=== PATIENT | female | born 1955 | race Caucasian/White ===

== ENCOUNTER 2016-12-29 09:49 | Inpatient (IN) | payer BC ==
[~2016-12-29] VITALS: Ht 152.4 cm; Wt 97.0 kg
[~2016-12-29 09:49] MED LIST: ALBU1AER9 INH; CHOL100010 PO; COD1000C PO; FURO20TA PO; INTE0.3I2 INJ; MTR600X PO; OMEG12006 PO; POTA-74 PO; ROSU40TA PO
[2016-12-29] MEDS ORDERED: OPTIRAY 320 IV PRN (10:30)
[2016-12-29] MEDS ORDERED: OXYC-609 PO (10:43)
[2016-12-29] MEDS ORDERED: MTR500 PO (10:43)
[2016-12-29 11:01] LABS: BASO % 0.2 %; BASO ABS # 0.02 K/uL (0-0.2); COMPLETE YES; EOS % 0.3 %; HEMATOCRIT 36.6 % (37-47); IG% 0.2 %; LYMPH % 8.3 %; LYMPH ABS # 1.04 K/uL (1.2-3.4); MEAN CORPUSCULAR HEMOGLOBIN 25.2 pg (25-34); MEAN CORPUSCULAR HGB CONC 31.1 g/dl (32-36); MEAN PLATELET VOLUME 10.9 fL (7.4-10.4); PLATELET COUNT 357 K/uL (130-400); RED BLOOD COUNT 4.52 M/uL (4.2-5.4); WHITE BLOOD COUNT 12.57 K/uL (4.8-10.8)
[2016-12-29 11:12] LABS: PROTHROMBIN TIME (PATIENT) 10.6 SECONDS (9.0-12.0)
[2016-12-29 11:20] LABS: ALT/SGPT 27 U/L (12-78); BLOOD UREA NITROGEN 9 mg/dl (7-18); BUN/CREATININE RATIO 12.6 (10-20); CALCIUM 8.7 mg/dl (8.5-10.1); CARBON DIOXIDE 26 mmol/L (21-32); CHLORIDE 103 mmol/L (98-107); GLUCOSE 136 mg/dl (70-99); POTASSIUM 3.4 mmol/L (3.5-5.1); SODIUM 137 mmol/L (136-145)
--- NOTE | 2016-12-29 11:23 | DIAGNOSTIC IMAGING REPORT ---
ULTRASOUND RIGHT LOWER EXTREMITY VENOUS CLINICAL HISTORY: Right leg swelling. COMPARISON STUDY: No priors. TECHNIQUE: Real-time, grayscale, and color Doppler sonography of the deep veins of the right lower extremity was performed from the inguinal crease to the calf. Compression and augmentation were utilized. FINDINGS: There is nearly occlusive deep venous thrombosis identified in the right popliteal vein. This extends into the calf within the peroneal and posterior tibial veins. The common femoral and superficial femoral veins are patent and normally compressible. The greater saphenous vein and the profunda femoris vein at the junction with the common femoral vein are clear. IMPRESSION: There is nearly occlusive deep venous thrombosis identified in the right popliteal vein which extends into the calf. Electronically signed by: Sukh Bush M.D. 12/29/2016 11:21 AM Dictated Date/Time: 12/29/2016 11:20 AM
[2016-12-29 11:25] LABS: ALKALINE PHOSPHATASE 119 U/L (45-117); AST/SGOT 14 U/L (15-37); CKMB/CK RATIO 3.8 (0-3.0)
--- NOTE | 2016-12-29 11:49 | DIAGNOSTIC IMAGING REPORT ---
(CHEST FOR PE) ANGIO WITH CT DOSE: 483.59 mGy.cm HISTORY: Chest pain dyspnea TECHNIQUE: Multiaxial CT images of the chest were performed following the intravenous administration of contrast to evaluate the pulmonary arteries. Maximal intensity projection images were also obtained. A dose lowering technique was utilized adhering to the principles of ALARA. COMPARISON STUDY: None. FINDINGS: Findings of bilateral extensive pulmonary emboli. There is worse on the right hemithorax compared to the left. There is involvement of the distal right main pulmonary artery with involvement of the right upper as well as right lower lobe pulmonary arterial vasculature. Less prominent findings seen involving the second-order vessels of the left hemithorax. There is a small right effusion. There is a trace amount pleural fluid left base. Parenchymal infiltrative change both lung bases versus dependent atelectatic changes present. Thoracic aorta is negative for aneurysm or dissection. IMPRESSION: Bilateral pulmonary pulmonary emboli worse on the right compared to the left. Bibasilar atelectatic and/or infiltrative change. Small right and to a lesser extent left pleural effusion. This report was phoned to Dr. Kaela medeiros in the ER The above report was generated using voice recognition software. It may contain grammatical, syntax or spelling errors. Electronically signed by: Jerry Xiao M.D. 12/29/2016 11:48 AM Dictated Date/Time: 12/29/2016 11:44 AM
[2016-12-29] MEDS ORDERED: HEPARIN 25000 UNIT/500 ML D5W ONE (12:08)
[2016-12-29] MEDS ORDERED: HEPARIN SOD 5000 UNIT/0.5 ML CARP ONE (12:08)
[2016-12-29 12:10] VITALS: O2SAT 96; Ht 152.4 cm; Wt 97.0 kg
[2016-12-29] MEDS ORDERED: HEPARIN SOD (PORCINE) 1000 UNIT/ML 10 ML VIAL ONE (12:13)
[2016-12-29] MEDS ORDERED: ALBUTEROL HFA 8 GM INHALER INH PRN (12:15)
[2016-12-29] MEDS ORDERED: ONDANSETRON INJ 2 MG/ML 2 ML VIAL IV PRN (12:15)
[2016-12-29] MEDS ORDERED: POTASSIUM CHLORIDE 10 MEQ TABCR PO STA (12:16)
--- NOTE | 2016-12-29 12:25 | EMERGENCY ROOM VISIT NOTE ---
History Report prepared by William: Malu Kennedy Under the Supervision of: Dr. Gage Morales D.O. First contact with patient: 10:22 Chief Complaint: SHORTNESS OF BREATH Stated Complaint: SHOULDER BLADES, RT SIDE CHEST DISCOMFORT Nursing Triage Summary: triage note: pt reports she [place] [facility] [place] pt reports she was dx with c-diff last sunday. pt reports she started to have shortness of breath and right shoulder blade pain last night. History of Present Illness The patient is a 61 year old female who presents to the Emergency Room with complaints of persistent SOB starting last night. The patient reports a sharp pain around her right shoulder blade which started last night. She also became SOB with this pain. She went to bed, but the pain did not improve. At 0500 she took two furosemide because she noticed that her lower extremities were swollen and she thought that she might be filling up with fluid. The furosemide did not help her symptoms. She has pain in the back of her right leg between her calf and the back of her knee. Pt denies having any rashes. She had hernia surgery 2.5 weeks ago. Her abdomen is sore but not bothering her. She was diagnosed with C diff 1 week ago and started of metronidazole. She denies any history of kidney problems. She has a history of MS. She has not had shingles before. Source of History: patient Onset: last night Position: other (global) Quality: other (SOB) Timing: other (persistent) Associated Symptoms: + back pain, No rash Note: Pt reports right leg pain. Review of Systems See HPI for pertinent positives & negatives. A total of 10 systems reviewed and were otherwise negative. Past Medical & Surgical Medical Problems: (1) Asthma (2) DVT (deep venous thrombosis) (3) Pulmonary embolism Family History Heart disease Social History Smoking Status: Never Smoker Marital Status: Occupation Status: employed Current/Historical Medications Scheduled Cholecalciferol (Vitamin D), 1,000 INTER.UNIT PO QPM Furosemide (Lasix), 20 MG PO QAM Interferon Beta-1B (Betaseron), 1 DOSE INJ Q2D Metronidazole (Metronidazole), 500 MG PO TID [place]-3 Fatty Acids ([place] 3), 1 CAP PO QPM Potassium Chloride (Potassium Chloride Er), 2 TAB PO QAM Scheduled PRN Albuterol (Proair Hfa), 2 PUFFS INH Q4 PRN for SOB/Wheezing Ibuprofen (Ibuprofen), 600 MG PO Q6H PRN for Pain Oxycodone HCl (Oxycodone HCl), 5 MG PO Q6 PRN for Pain Allergies Coded Allergies: Adhesives (Verified Allergy, Unknown, BANDAIDES, RASH, EXCORIATION, 12/29/16 ) Penicillins (Unverified Allergy, Unknown, RASH, HIVES, 12/29/16) Rosuvastatin (Unverified Allergy, Unknown, LIVER FAILURE, 12/29/16) Physical Exam Vital Signs Date Time Temp Pulse Resp B/P (MAP) Pulse Ox O2 Delivery O2 Flow Rate FiO2 12/29/16 12:05 85 18 129/71 96 Room Air 12/29/16 11:03 82 18 137/70 94 Room Air 12/29/16 10:12 86 12/29/16 10:05 36.8 83 18 108/97 96 Room Air 12/29/16 10:05 96 Room Air 12/29/16 10:05 94 Room Air Physical Exam CONSTITUTIONAL/VITAL SIGNS: Reviewed / noted above. GENERAL: Non-toxic in appearance. INTEGUMENTARY: Warm, dry, and [place]. HEAD: Normocephalic. EYES: without scleral icterus or trauma. ENT/OROPHARYNX: clear and moist. LYMPHADENOPATHY/NECK: Is supple without lymphadenopathy or meningismus. RESPIRATORY: Lungs clear and equal. CARDIOVASCULAR: Regular rate and rhythm. GI/ABDOMEN: Soft and nontender. No organomegaly or pulsatile mass. No rebound or guarding. Normal bowel sounds. EXTREMITIES: Warm and well perfused. Mild tenderness to the right superior calf. BACK: No CVA tenderness. NEUROLOGICAL: Intact without focal deficits. PSYCHIATRIC: normal affect. MUSCULOSKELETAL: Normally developed with good muscle tone. Medical Decision & Procedures ER Provider Diagnostic Interpretation: Radiology results as stated below per my review and radiologist interpretation: (CHEST FOR PE) ANGIO WITH CT DOSE: 483.59 mGy.cm HISTORY: Chest pain dyspnea TECHNIQUE: Multiaxial CT images of the chest were performed following the intravenous administration of contrast to evaluate the pulmonary arteries. Maximal intensity projection images were also obtained. A dose lowering technique was utilized adhering to the principles of ALARA. COMPARISON STUDY: None. FINDINGS: Findings of bilateral extensive pulmonary emboli. There is worse on the right hemithorax compared to the left. There is involvement of the distal right main pulmonary artery with involvement of the right upper as well as right lower lobe pulmonary arterial vasculature. Less prominent findings seen involving the second-order vessels of the left hemithorax. There is a small right effusion. There is a trace amount pleural fluid left base. Parenchymal infiltrative change both lung bases versus dependent atelectatic changes present. Thoracic aorta is negative for aneurysm or dissection. IMPRESSION: Bilateral pulmonary pulmonary emboli worse on the right compared to the left. Bibasilar atelectatic and/or infiltrative change. Small right and to a lesser extent left pleural effusion. This report was phoned to Dr. Morales in the ER The above report was generated using voice recognition software. It may contain grammatical, syntax or spelling errors. Electronically signed by: Jerry Xiao M.D. 12/29/2016 11:48 AM Dictated Date/Time: 12/29/2016 11:44 AM ULTRASOUND RIGHT LOWER EXTREMITY VENOUS CLINICAL HISTORY: Right leg swelling. COMPARISON STUDY: No priors. TECHNIQUE: Real-time, grayscale, and color Doppler sonography of the deep veins of the right lower extremity was performed from the inguinal crease to the calf. Compression and augmentation were utilized. FINDINGS: There is nearly occlusive deep venous thrombosis identified in the right popliteal vein. This extends into the calf within the peroneal and posterior tibial veins. The common femoral and superficial femoral veins are patent and normally compressible. The greater saphenous vein and the profunda femoris vein at the junction with the common femoral vein are clear. IMPRESSION: There is nearly occlusive deep venous thrombosis identified in the right popliteal vein which extends into the calf. Electronically signed by: Sukh Bush M.D. 12/29/2016 11:21 AM Dictated Date/Time: 12/29/2016 11:20 AM Laboratory Results 12/29/16 10:48 Red Blood Count 4.52, Mean Corpuscular Volume 81.0, Mean Corpuscular Hemoglobin 25.2, Mean Corpuscular Hemoglobin Concent 31.1, Mean Platelet Volume 10.9, Neutrophils (%) (Auto) 83.0, Lymphocytes (%) (Auto) 8.3, Monocytes (%) (Auto) 8.0, Eosinophils (%) (Auto) 0.3, Basophils (%) (Auto) 0.2, Neutrophils # (Auto) 10.43, Lymphocytes # (Auto) 1.04, Monocytes # (Auto) 1.01, Eosinophils # (Auto) 0.04, Basophils # (Auto) 0.02 12/29/16 10:48 Test 12/29/16 10:48 12/29/16 12:18 White Blood Count 12.57 K/uL (4.8-10.8) Red Blood Count 4.52 M/uL (4.2-5.4) Hemoglobin 11.4 g/dL (12.0-16.0) Hematocrit 36.6 % (37-47) Mean Corpuscular Volume 81.0 fL (80-100) Mean Corpuscular Hemoglobin 25.2 pg (25-34) Mean Corpuscular Hemoglobin Concent 31.1 g/dl (32-36) Platelet Count 357 K/uL (130-400) Mean Platelet Volume 10.9 fL (7.4-10.4) Neutrophils (%) (Auto) 83.0 % Lymphocytes (%) (Auto) 8.3 % Monocytes (%) (Auto) 8.0 % Eosinophils (%) (Auto) 0.3 % Basophils (%) (Auto) 0.2 % Neutrophils # (Auto) 10.43 K/uL (1.4-6.5) Lymphocytes # (Auto) 1.04 K/uL (1.2-3.4) Monocytes # (Auto) 1.01 K/uL (0.11-0.59) Eosinophils # (Auto) 0.04 K/uL (0-0.5) Basophils # (Auto) 0.02 K/uL (0-0.2) RDW Standard Deviation 47.6 fL (36.4-46.3) RDW Coefficient of Variation 16.0 % (11.5-14.5) Immature Granulocyte % (Auto) 0.2 % Immature Granulocyte # (Auto) 0.03 K/uL (0.00-0.02) Prothrombin Time 10.6 SECONDS (9.0-12.0) Prothromb Time International Ratio 1.0 (0.9-1.1) Activated Partial Thromboplast Time 26.6 SECONDS (21.0-31.0) Partial Thromboplastin Ratio 1.0 Anion Gap 8.0 mmol/L (3-11) Est Creatinine Clear Calc Drug Dose 89.9 ml/min Estimated GFR () 108.4 Estimated GFR (Non- 93.5 BUN/Creatinine Ratio 12.6 (10-20) Calcium Level 8.7 mg/dl (8.5-10.1) Total Bilirubin 0.4 mg/dl (0.2-1) Direct Bilirubin < 0.1 mg/dl (0-0.2) Aspartate Amino Transf (AST/SGOT) 14 U/L (15-37) Alanine Aminotransferase (ALT/SGPT) 27 U/L (12-78) Alkaline Phosphatase 119 U/L (45-117) Total Creatine Kinase 34 U/L (26-192) Creatine Kinase MB 1.3 ng/ml (0.5-3.6) Creatine Kinase MB Ratio 3.8 (0-3.0) Troponin I < 0.015 ng/ml (0-0.045) Total Protein 7.2 gm/dl (6.4-8.2) Albumin 2.7 gm/dl (3.4-5.0) Lipase 406 U/L (73-393) Laboratory results as stated above per my review. Medications Administered Medications (Trade) Dose Ordered Sig/Chelle Route Start Time Stop Time Status Last Admin Dose Admin Heparin Sodium/ Dextrose 1 ea NOW STAT N/A 12/29/16 12:00 12/29/16 12:01 DC 12/29/16 12:00 1 EA Heparin Sodium/ Dextrose (Heparin 25,000 Unit/500ml D5W) 25,000 unit STK-MED ONCE .ROUTE 12/29/16 12:08 12/29/16 12:09 DC 12/29/16 12:12 25,000 UNIT Heparin Sodium (Porcine) (Heparin Iv Bolus) 10,000 unit STK-MED ONCE .ROUTE 12/29/16 12:13 12/29/16 12:14 DC 12/29/16 12:16 5,000 UNIT ECG Indication: back/shoulder pain Rate (beats per minute): 89 Rhythm: normal sinus Findings: no ectopy, other (no acute injury) ED Course 1023: Previous medical records were reviewed. The patient was evaluated in room B4B. A complete history and physical examination was performed. 1200: Heparin Sodium/Dextrose 1 ea IV. 1201: I reevaluated the patient. She is stable. I discussed the results and findings with her. She verbalized agreement of the treatment plan. The patient will be evaluated for further management and care. 1203: I discussed the patient's case [facility] The patient will be evaluated for further management. Medical Decision the differential was considered includes acute myocardial infarction, acute coronary syndrome, myocarditis, pericarditis, pericardial effusions /tamponade, esophageal perforation, thoracic aortic dissection, pulmonary embolism, pneumonia, pneumothorax, pancreatitis, shingles, acute cholecystitis, perforated abdominal viscus. This is a 61-year-old female who presents to the ED with a chief complaint of having an abdominal ventral wall hernia repair on December 12 at [facility]. The patient also developed C. difficile last Sunday. The patient states that she felt a little short of breath this morning and developed a right shoulder blade pain last night. She describes it as a sharp pain. Her vital signs are normal. Her physical exam revealed some tenderness to the superior right calf region. The patient's EKG shows a normal sinus rhythm. CBC was unremarkable. Complete metabolic panel was unremarkable. Troponin was negative. Chest x-ray reveals bilateral PEs in the right lower extremity ultrasound reveals a right popliteal vein DVT. The patient was started on IV heparin. She will be admitted by the hospitalist. She is hemodynamically stable, in no distress and short of breath. Medication Reconcilliation Current Medication List: was personally reviewed by me Blood Pressure Screening Patient's blood pressure: Normal blood pressure Blood pressure disposition: Did not require urgent referral Consults Time Called: 1159 Consulting Physician: [facility] Returned Call: [phone] Discussed the patient's case. The patient will be evaluated for further treatment and disposition. Impression Primary Impression: Bilateral pulmonary embolism Additional Impression: Deep vein thrombosis (DVT) of right lower extremity Scribe Attestation The scribe's documentation has been prepared under my direction and personally reviewed by me in its entirety. I confirm that the note above accurately reflects all work, treatment, procedures, and medical decision making performed by me. Departure Information Dispostion Being Evaluated By Hospitalist Referrals Zeferino Wheeler M.D. ([facility]) (PCP) Patient Instructions My [facility] Problem Qualifiers
[2016-12-29] MEDS ORDERED: ENOXAPARIN 1 MG/KG SQ SCH (12:30)
[2016-12-29] MEDS ORDERED: LOVENOX TEACHING KIT SCH (12:30)
[2016-12-29] MEDS ORDERED: POTASSIUM CHLORIDE 10 MEQ TABCR ONE ×2 (12:30→12:31)
--- NOTE | 2016-12-29 13:04 | History and Physical ---
History & Physical Date & Time of Service: Dec 29, 2016 at 12:59 Chief Complaint: Shoulder Blades, Rt Side Chest Discomfort Primary Care Physician: Zeferino Wheeler M.D.(MARTIN) History of Present Illness Source: patient This is a 61yo F with a PMH of Multiple Sclerosis and ventral hernia s/p repair with mesh (12/12/16) who presents with SOB that started last night. Patient was getting ready for bed when she experienced sudden onset SOB with associated posterior R shoulder pain. As the night progressed, she noticed that pain was worse with inspiration. In the vending technician, patient noticed that both legs were swollen, so she took two furosemide tabs (40mg total) to decrease fluid, but noted no change. Upon ambulation to the restroom, patient noticed a sharp pain on the back of her R leg from her knee to her calf. Pain resolved once she was back in bed lying down. Denies any personal or family history of DVT/PE or clotting disorders Denies any lightheadedness, headache, palpitations, chest pain, wheezing, nausea, vomiting or skin changes. Patient had a retro-rectus incisional hernia repair with mesh performed at [facility] on 12/12/26. Was on Lovenox prophylaxis during admission. States that post-op hospital course was complicated by nausea, vomiting and diarrhea that contributed to an extended hospital stay (11 days). Was sedentary during that time as well as during the past week when recovering at home. Was diagnosed with C diff 1 day prior to discharge on 12/23/16 and was started on a course of metronidazole. Has had periods of constipation over the past few days until taking a stool softener and laxative last evening. Since then, patient endorses 4 episodes of loose stool. Past Medical/Surgical History Medical Problems: (1) Asthma Status: Chronic Family History Heart disease Social History Smoking Status: Never Smoker Marital Status: Occupational Status: employed Multi-Drug Resistant Organisms History of MDRO: No Allergies Coded Allergies: Adhesives (Verified Allergy, Unknown, BANDAIDES, RASH, EXCORIATION, 12/29/16 ) Penicillins (Unverified Allergy, Unknown, RASH, HIVES, 12/29/16) Rosuvastatin (Unverified Allergy, Unknown, LIVER FAILURE, 12/29/16) Home Medications Scheduled Cholecalciferol (Vitamin D), 1,000 INTER.UNIT PO QPM Enoxaparin (Enoxaparin Sodium), 100 MG SQ Q12 Furosemide (Lasix), 20 MG PO QAM Interferon Beta-1B (Betaseron), 1 DOSE INJ Q2D Metronidazole (Metronidazole), 500 MG PO TID Bluford-3 Fatty Acids (Bluford 3), 1 CAP PO QPM Potassium Chloride (Potassium Chloride Er), 2 TAB PO QAM Warfarin Sod (Coumadin), 7.5 MG PO DAILY Scheduled PRN Albuterol (Proair Hfa), 2 PUFFS INH Q4 PRN for SOB/Wheezing Ibuprofen (Ibuprofen), 600 MG PO Q6H PRN for Pain Oxycodone HCl (Oxycodone HCl), 5 MG PO Q6 PRN for Pain Review of Systems Ten systems reviewed and negative except as noted in the HPI. Physical Exam Vital Signs Date Time Temp Pulse Resp B/P (MAP) Pulse Ox O2 Delivery O2 Flow Rate FiO2 12/29/16 12:10 96 Room Air 12/29/16 12:05 85 18 129/71 96 Room Air 12/29/16 11:03 82 18 137/70 94 Room Air 12/29/16 10:12 86 12/29/16 10:05 36.8 83 18 108/97 96 Room Air 12/29/16 10:05 96 Room Air 12/29/16 10:05 94 Room Air General Appearance: WD/WN, no apparent distress Head: normocephalic, atraumatic Eyes: normal inspection, PERRL, sclerae normal ENT: normal ENT inspection, hearing grossly normal Neck: supple, no adenopathy, thyroid normal, trachea midline Respiratory/Chest: chest non-tender, no respiratory distress, no accessory muscle use, + decreased breath sounds (Inspiration limited 2/2 pleuritic pain. ) Cardiovascular: regular rate, rhythm, no gallop, no murmur, normal peripheral pulses Abdomen/GI: normal bowel sounds (Presence of well-healing vertical midline incision with cheli. 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, no motor/sensory deficits, alert, normal mood/affect, oriented x 3, + abnormal gait (Chronic; ambulates with cane ) Skin: normal color, warm/dry, no rash Diagnostics Laboratory Results Results Past 24 Hours Test 12/29/16 10:40 12/29/16 10:48 12/29/16 12:18 Range/Units White Blood Count 12.57 4.8-10.8 K/uL Red Blood Count 4.52 4.2-5.4 M/uL Hemoglobin 11.4 12.0-16.0 g/dL Hematocrit 36.6 37-47 % Mean Corpuscular Volume 81.0 80-100 fL Mean Corpuscular Hemoglobin 25.2 25-34 pg Mean Corpuscular Hemoglobin Concent 31.1 32-36 g/dl Platelet Count 357 130-400 K/uL Mean Platelet Volume 10.9 7.4-10.4 fL Neutrophils (%) (Auto) 83.0 % Lymphocytes (%) (Auto) 8.3 % Monocytes (%) (Auto) 8.0 % Eosinophils (%) (Auto) 0.3 % Basophils (%) (Auto) 0.2 % Neutrophils # (Auto) 10.43 1.4-6.5 K/uL Lymphocytes # (Auto) 1.04 1.2-3.4 K/uL Monocytes # (Auto) 1.01 0.11-0.59 K/uL Eosinophils # (Auto) 0.04 0-0.5 K/uL Basophils # (Auto) 0.02 0-0.2 K/uL RDW Standard Deviation 47.6 36.4-46.3 fL RDW Coefficient of Variation 16.0 11.5-14.5 % Immature Granulocyte % (Auto) 0.2 % Immature Granulocyte # (Auto) 0.03 0.00-0.02 K/uL Prothrombin Time 10.6 9.0-12.0 SECONDS Prothromb Time International Ratio 1.0 0.9-1.1 Activated Partial Thromboplast Time 26.6 21.0-31.0 SECONDS Partial Thromboplastin Ratio 1.0 Sodium Level 137 136-145 mmol/L Potassium Level 3.4 3.5-5.1 mmol/L Chloride Level 103 98-107 mmol/L Carbon Dioxide Level 26 21-32 mmol/L Anion Gap 8.0 3-11 mmol/L Blood Urea Nitrogen 9 7-18 mg/dl Creatinine 0.70 0.60-1.20 mg/dl Est Creatinine Clear Calc Drug Dose 89.9 ml/min Estimated GFR () 108.4 Estimated GFR (Non- 93.5 BUN/Creatinine Ratio 12.6 10-20 Random Glucose 136 70-99 mg/dl Calcium Level 8.7 8.5-10.1 mg/dl Total Bilirubin 0.4 0.2-1 mg/dl Direct Bilirubin < 0.1 0-0.2 mg/dl Aspartate Amino Transf (AST/SGOT) 14 15-37 U/L Alanine Aminotransferase (ALT/SGPT) 27 12-78 U/L Alkaline Phosphatase 119 45-117 U/L Total Creatine Kinase 34 26-192 U/L Creatine Kinase MB 1.3 0.5-3.6 ng/ml Creatine Kinase MB Ratio 3.8 0-3.0 Troponin I < 0.015 0-0.045 ng/ml Total Protein 7.2 6.4-8.2 gm/dl Albumin 2.7 3.4-5.0 gm/dl Lipase 406 73-393 U/L Diagnostic Radiology Chest/Thorax CTA: IMPRESSION: Bilateral pulmonary pulmonary emboli worse on the right compared to the left. Bibasilar atelectatic and/or infiltrative change. Small right and to a lesser extent left pleural effusion. R Extremity U/S: IMPRESSION: There is nearly occlusive deep venous thrombosis identified in the right popliteal vein which extends into the calf. EKG ECG: NSR; non-specific ST abnormalities Impression Assessment and Plan This is a 61yo F with a PMH of Multiple Sclerosis and ventral hernia s/p repair with mesh (12/12/16) who presents with SOB that started last night and was found to have bilateral PEs, R LE DVT and a UTI. Bilateral PEs: -Sudden onset SOB and pleuritic pain x 1 day -VS stable; no tachycardia or tachypnea -CTA showing bilateral pulmonary emboli R>L -Hypercoagulability panel ordered -Echo to assess R heart strain -Most likely caused by immobility 2/2 hernia repair and extended hospital stay ( 11 days) -Therapeutic heparin initiated in ED -Will bridge with Lovenox and initiate Coumadin tomorrow R LE DVT: -R posterior knee and calf pain x 1 day -R Extremity U/S showing a nearly occlusive DVT in R popliteal vein, extended to calf -Therapeutic heparin initiated in ED -Will bridge with Lovenox and initiate Coumadin tomorrow Uncomplicated UTI: -UA found to have moderate amt of leuk esterase, >30 wbcs and 2+ occult blood -Leukocytosis of 12.57 -Started on course of Cipro C. diff infection: -Diagnosed during [facility] admission on 12/22/16 -States that symptoms are improving -Had 4 loose stools today after taking bowel regimen last evening 2/2 constipation -Continue metronidazole course -Repeat c diff toxin pending S/p Ventral Hernia repair: -Well-healing midline incision with cheli in place. Has appt for staple removal later this month. -Deconditioned after extended hospital course and c diff infection. Ordered PT/ OT eval Multiple Sclerosis: stable -Continue Interferon B injection every other day Elevated Lipase: -Slightly elevated to 406 -No n/v currently. Some diarrhea with c. diff infection -No epigastric or RUQ TTP on exam -Will repeat lab in AM HTN: -Normotensive -Continue Lasix 20mg Steatohepatitis: stable DVT Ppx: Lovenox Code status: FULL PCP: Summer Dispo: Plan to return home once medically stable. PT/OT evals ordered while in- patient. ATTENDING NOTE : pt seen and examined , images and date reviewed , care co ordinated with Nikki Chandler PA-C in agreement with above H&P please see her document for detail briefly 61 yo F with recently discharged form [facility] after prolong hospital stay for ventral abdominal hernia repair presented with rt leg pain , swelling /SOB with pain radiating to back between her shoulders images shows acute occlusive DVT of rt popliteal vein and bilateral PE in CTA of chest P/E: gen ; no sign of distress HEENT : sclera non icteric , PERRLA/EOMI no JVD HT : regular s1/S2 lungs; diminished , no rales or wheeze noted Abdomen ; mid abdomen surgical incision intact , cheli present , no drainage noted , abdomen is soft, bowel sound active EXT : 2 + bilateral lower ext edema, + calf tenderness on rt side Neuro: no focal neurological deficit , AAO x3 IMAGES: CTA OF CHEST ; Bilateral pulmonary emboli R> L DOPPLER OF LOWER EXT: nearly occlusive DVT of rt popliteal vein extending to calf A/p : BILATERAL PE/DVT : ' no prior hx possible provoking event : recent prolonged /complicated hospital stay post abdominal surgery ECHO ordered to assess Rt heart strain pt will be started on Lovenox Bridge therapy hypercoagulable work up sent d/w with Pt regarding NOAC vs Coumadin prefers to be on Coumadin , ok with periodic lab monitoring POSSIBLE UTI : UA grossly positive pt denies of any urinary symptom urine culture ordered started on PO Ciprofloxacin mild leukocytosis possible due to UTI RECENT C DIFF INFECTION ; Cont Metronidazole PO no report of diarrhea stool for c diff ordered FULL CODE DVT PROPHYLAXIS : Lovenox bridge /Coumadin DISPOSITION : expected to be return home when medically stable Medicine follow up with Dr Wheeler please refer to Nikki Chandler PA-C documentation for detail discussion of other issues Level of Care Telemetry Advanced Directives Existing Living Will: No Existing Power of Log Washer: No Resuscitation Status FULL RESUSCITATION VTE Prophylaxis VTE Risk Assessment Done? Y/N: Yes Risk Level: High Given or contraindicated: Enoxaparin (Lovenox)SQ, Warfarin (Coumadin) Additional Copies To Zeferino Wheeler M.D.(MARTIN)
[2016-12-29] MEDS ORDERED: OXYCODONE HCL IR 5 MG TAB (IMMEDIATE RELEASE) PO PRN (13:45)
[2016-12-29 14:32] VITALS: BP 134/78; PULSE 86; TEMP 36.8; O2SAT 99
--- NOTE | 2016-12-29 15:16 | ECHOCARDIOGRAM REPORT ---
*NOTICE TO RECEIVING CONSTITUTION PARTY AGENCY This information is strictly Confidential and protected under [place] law. [place] law prohibits you from making any further disclosure of this information unless further disclosure is expressly permitted by the written consent of the person to whom it pertains or is authorized by law. A general authorization for the release of medical or other information is not sufficient for this purpose. Hospital accepts no responsibility if the information is made available to any other person, INCLUDING THE PATIENT. Interpretation Summary * Name: PANKAJ RODRIGUEZ Study Date: 12/29/2016 01:37 PM BP: 134/78 mmHg * Patient Location: C.2T\S\E215\S\1 HR: 83 * : 1955 (M/d/yyyy) Gender: Female Height: 60 in * Age: 61 yrs Ethnicity: [place] Weight: 221 lb * Ordering Physician: Donya Calvert * Referring Physician: Self, Referred * Performed By: Nadeen Menjivar RCS * * Reason For Study: R/O EVAL FOR RT HEART STRAIN * BSA: 1.9 m2 * -- Conclusions -- * Normal LV chamber size and wall thickness. * Normal LV systolic function, EF 60-65%. * No segmental left ventricular wall motion abnormalities are noted. * Grade II diastolic dysfunction. * Aortic valve sclerosis mild, without significant aortic valvular stenosis. Procedure Details * A complete two-dimensional transthoracic echocardiogram was performed (2D, M-mode, Doppler and color flow Doppler). Left Ventricle * The left ventricle is normal in size. * There is normal left ventricular wall thickness. * Left ventricular systolic function is normal. * No segmental left ventricular wall motion abnormalities are noted. * Ejection Fraction = 60-65%. * The left ventricular wall motion is normal. Right Ventricle * The right ventricular cavity size is normal (basal dimension <4.2 cm in right ventricular apical 4-chamber view). * The right ventricular systolic function is normal as assessed by tricuspid annular plane systolic excursion (TAPSE) (normal >1.5 cm). Atria * The left atrial size is normal. * Right atrial size is normal. * No ASD detected; PFO is not assessed. Mitral Valve * The mitral valve is normal in structure and function. Tricuspid Valve * The tricuspid valve is normal in structure and function. Aortic Valve * The aortic valve is trileaflet. * Aortic valve sclerosis mild, without significant aortic valvular stenosis. * There is no significant aortic regurgitation. Pulmonic Valve * The pulmonary valve is not well seen, but the Doppler examination is normal without significant regurgitation or stenosis. Great Vessels * The aortic root and proximal ascending aorta are normal sized. Pericardium/Pleural * There is no pericardial effusion. Left Ventricular Diastolic Function * Grade I diastolic dysfunction, (abnormal relaxation pattern). MMode 2D Measurements and Calculations IVSd 1.0 cm IVSs 1.4 cm LVIDd 5.0 cm LVIDs 3.4 cm LVPWd 1.1 cm LVPWs 1.8 cm IVS/LVPW 0.91 FS 32.6 % EDV(Teich) 118.9 ml ESV(Teich) 46.6 ml EF(Teich) 60.8 % EDV(cubed) 125.9 ml ESV(cubed) 38.5 ml EF(cubed) 69.4 % % IVS thick 37.0 % % LVPW thick 61.7 % LV mass(C)d 205.5 grams LV mass(C)dI 105.5 grams/m\S\2 LV mass(C)s 212.9 grams LV mass(C)sI 109.3 grams/m\S\2 SV(Teich) 72.3 ml SI(Teich) 37.1 ml/m\S\2 SV(cubed) 87.4 ml SI(cubed) 44.9 ml/m\S\2 Ao root diam 3.3 cm Ao root area 8.3 cm\S\2 LA dimension 3.5 cm LA/Ao 1.1 LVOT diam 1.9 cm LVOT area 3.0 cm\S\2 Doppler Measurements and Calculations MV E max christiano 84.1 cm/sec MV A max christiano 72.3 cm/sec MV E/A 1.2 MV P1/2t max christiano 93.0 cm/sec MV P1/2t 72.3 msec MVA(P1/2t) 3.0 cm\S\2 MV dec slope 376.5 cm/sec\S\2 MV dec time 0.18 sec Ao V2 max 162.4 cm/sec Ao max PG 10.6 mmHg Ao max PG (full) 6.3 mmHg BULMARO(V,A) 1.9 cm\S\2 BULMARO(V,D) 1.9 cm\S\2 LV V1 max PG 4.3 mmHg LV V1 max 103.5 cm/sec PA V2 max 98.9 cm/sec PA max PG 3.9 mmHg TR max christiano 377.5 cm/sec
[2016-12-29] MEDS: METRONIDAZOLE 500 MG TAB PO SCH ×2 (15:28→22:35)
[2016-12-29] MEDS: ENOXAPARIN 100 MG/1ML SYR SQ SCH ×2 (15:29→22:35)
[2016-12-29 15:57] LABS: URINE APPEARANCE CLOUDY (CLEAR); URINE BILIRUBIN NEG (NEG); URINE COLOR YELLOW; URINE EPITHELIAL CELL AUTO >30 /lpf (0-5); URINE NITRITE NEG (NEG); URINE SPECIFIC GRAVITY > 1.045 (1.000-1.030); UROBILINOGEN NEG (NEG); ZZUR CULT IF INDIC CLEAN CATCH YES
[2016-12-29 16:01] LABS: MANUAL MICROSCOPIC REQUIRED? NO; REVIEW REQ? YES
[2016-12-29] MEDS: LACTOBACILLUS ACIDOPHILUS (FLORANEX) TAB PO SCH (17:35)
[2016-12-29 19:44] VITALS: BP 122/81; PULSE 84; TEMP 36.7; O2SAT 91
[2016-12-29] MEDS: CIPROFLOXACIN 500 MG TAB PO SCH (19:56)
[2016-12-29] MEDS: OMEGA-3 (PURIFIED FISH OIL) 1 GM CAP PO SCH (19:59)
[2016-12-29] MEDS: CHOLECALCIFEROL 1000 INTER.UNIT TAB PO SCH (19:59)
[2016-12-29] MEDS ORDERED: KETOROLAC TROMETHAMINE 30 MG/ML VIAL IV STA (20:07)
[2016-12-29] MEDS ORDERED: INTERFERON BETA 0.3 MG SC SCH (21:00)
--- NOTE | 2016-12-29 22:30 | DIAGNOSTIC IMAGING REPORT ---
ABDOMEN AND PELVIS CT WITHOUT CONTRAST CT DOSE: 1056.09 mGy.cm HISTORY: back pain on blood thinners, ro bleed TECHNIQUE: Multiaxial CT images of the abdomen and pelvis were performed without contrast. A dose lowering technique was utilized adhering to the principles of ALARA. COMPARISON STUDY: Chest CTA 12/29/2016. FINDINGS: Small right pleural effusion, unchanged. Patchy bilateral lower lobe densities. This may represent atelectasis and/or pulmonary infarct given the pulmonary emboli. No pneumoperitoneum. No pneumatosis. No suspicious lytic or blastic osseous lesions. Recent midline incision with multiple skin cheli. A 6.7 cm subcutaneous gas and fluid collection deep to the skin cheli/incision site. No evidence for a retroperitoneal hematoma. Mild hepatic steatosis. The unenhanced spleen, adrenal glands, and pancreas are unremarkable. The gallbladder remains mildly distended. No gallbladder wall thickening. No retroperitoneal lymphadenopathy. Contrast within the renal collecting systems from the prior CT examination. There is also contrast within the bladder. No hydronephrosis. There are 2 hypodense lesions within the right kidney with the largest in the lower pole measuring 5 cm. These are incompletely characterized on this noncontrast study. There are multiple left peripelvic renal cysts. Prior appendectomy. No bowel wall thickening or obstruction. IMPRESSION: 1. No evidence for a retroperitoneal hematoma. 2. No change in the small right pleural effusion and bibasilar densities. This may represent atelectasis persists or pulmonary infarcts given the patient's history of pulmonary emboli. 3. Recent midline abdominal incision. There is a 6.7 cm subcutaneous gas and fluid collection deep to the incision site which favors a seroma at this time. Clinical follow-up recommended to ensure resolution and to exclude the possibility of a developing abscess. 4. The gallbladder remains mildly distended. No gallbladder wall thickening. Electronically signed by: Kin Coffman M.D. 12/29/2016 10:28 PM Dictated Date/Time: 12/29/2016 10:16 PM
[2016-12-30] VITALS (7 sets, daily range): BP systolic 122–145; BP diastolic 72–83; PULSE 81–93; TEMP 36.7–37.3; O2SAT 90–96
[2016-12-30 05:58] LABS: HEMATOCRIT 33.8 % (37-47); MEAN CELL VOLUME 81.6 fL (80-100); MEAN CORPUSCULAR HEMOGLOBIN 25.4 pg (25-34); MEAN CORPUSCULAR HGB CONC 31.1 g/dl (32-36); MEAN PLATELET VOLUME 11.2 fL (7.4-10.4); PLATELET COUNT 333 K/uL (130-400); RED BLOOD COUNT 4.14 M/uL (4.2-5.4); WHITE BLOOD COUNT 11.05 K/uL (4.8-10.8)
[2016-12-30] MEDS: METRONIDAZOLE 500 MG TAB PO SCH ×3 (06:00→20:26)
[2016-12-30 06:06] LABS: INR 1.1 (0.9-1.1); PROTHROMBIN TIME (PATIENT) 11.3 SECONDS (9.0-12.0)
[2016-12-30 06:22] LABS: BUN/CREATININE RATIO 12.7 (10-20); CALCIUM 8.7 mg/dl (8.5-10.1); CREATININE 0.78 mg/dl (0.60-1.20); POTASSIUM 3.5 mmol/L (3.5-5.1)
[2016-12-30] MEDS ORDERED: NSS + 20MEQ KCL 1000ML 1,000 ML IV ONE (07:00)
[2016-12-30] MEDS: LACTOBACILLUS ACIDOPHILUS (FLORANEX) TAB PO SCH ×3 (08:09→17:18)
[2016-12-30] MEDS ORDERED: POTASSIUM CHLORIDE PO SCH (09:00)
[2016-12-30] MEDS ORDERED: FUROSEMIDE 20 MG TAB PO SCH (09:00)
[2016-12-30] MEDS: CIPROFLOXACIN 500 MG TAB PO SCH ×2 (09:33→20:27)
[2016-12-30] MEDS: ENOXAPARIN 100 MG/1ML SYR SQ SCH ×2 (09:33→20:28)
[2016-12-30] MEDS ORDERED: LVNIS100 SQ (10:33)
[2016-12-30] MEDS ORDERED: CMD75 PO (10:33)
--- NOTE | 2016-12-30 10:53 | Discharge Instructions ---
Discharge Instructions Date of Service Admission Reason for Admission: Dvt, Pulmonary Embolism Discharge Discharge Diagnosis / Problem: (1) Deep vein thrombosis (DVT) of right lower extremity (2) Bilateral pulmonary embolism VTE Date & Time Date of VTE Diagnosis: Dec 29, 2016 Time of VTE Diagnosis: 10:27 Discharge Goals Goal(s): Decrease discomfort, Diagnostic testing, Therapeutic intervention Activity Recommendations Activity Limitations: resume your previous activity Shower/Bathe: no limitations . Instructions / Follow-Up Instructions / Follow-Up HOSPITAL FOLLOW UP : 01/03/2017 10:00 AM Zeferino Wheeler MD Family Practice [facility] SURGERY FOLLOW UP : 01/17/2017 9:30 AM Kaycee Burroughs PA-C [facility] WITH ANTICO[facility]ULATION /COAGULATION CLINIC FOR MONITORING OF PT/INR AND ADJUSTMENT OF COUMADIN DOSE YOU ARE SENT HOME WITH LOVENOX BRIDGE THERAPY -WHICH WILL BE DISCONTINUED AFTER BLOOD WORK CHECK ( PT/INR ) AT COAGULATION CLINIC DO NOT TAKE ASPIRIN , MOTRIN , ADVIL , IBUPROFEN-INCREASED RISK OF BLEEDING WHILE TAKING COUMADIN PLEASE NOTIFY YOUR FAMILY PHYSICIAN WITH ANY EVIDENCE OF DARK STOOL , BLOOD IN URINE , NOSE BLEED Medication Instructions: * Warfarin is a medicine prescribed to prevent blood clots * Warfarin will thin your blood and help prevent new clots * Take your medications exactly as directed * Never skip a dose. Never take a double dose. If you miss a dose, take it as soon as you remember * It is important for your doctor to monitor your prothrombin time (PT). This is a lab test * Keep your appointment for lab tests Risk of Adverse Drug Reactions and Interactions: * Warfarin increases your risk of bleeding * The food you eat and other medications you take can affect how Warfarin works in your body * Ask your doctor about daily aspirin therapy * It is very important to talk with your doctor about all of the other medicines , antibiotics, vitamins or herbal products that you are taking * All of your medication must be approved by your doctor, including new medicines, as well as medicines you have taken before you started taking Warfarin Diet: * In order for Warfarin to work properly, it is important to keep your intake of Vitamin K as consistent as possible * You should avoid any sudden change in Vitamin K intake * Report any significant changes in your diet or weight to your doctor Call your Primary Care doctor if you experience any of the following: * Swelling or Pain in your leg * Sudden, continuous pain deep in a muscle * Pain that worsens when you are active or when you stand still for a long time * Chest Pain * Sudden Shortness of Breath * Rapid or pounding heart beat * Fainting * Dizziness * Cough with blood or bloody sputum * Sweating more than normal * Bruises * Heavy or uncontrolled bleeding * Blood in your urine, stool or vomit * Black or tarry stools Caring for Your Self at Home: * Avoid sitting, standing or lying down for long periods without moving your legs and feet * When traveling by car, stop to get out and move around at least once every 3 hours * On long airplane, train or bus rides, get up and move around when possible * If you can't get up, wiggle your toes and tighten your calves to keep your blood moving Follow Up: It is important for you to keep your follow up appointments with your medical provider. Current Hospital Diet Patient's current hospital diet: Low Fat Diet Discharge Diet Recommended Diet: Low Sodium Diet (2gm Na) Pending Studies Studies pending at discharge: yes List of pending studies: RESULT FOR HYPERCOAGULABLE WORK UP ORDERED AT [facility] Medical Emergencies . Who to Call and When: Medical Emergencies: If at any time you feel your situation is an emergency, please call 911 immediately. . Non-Emergent Contact Non-Emergency issues call your: Primary Care Provider . . "Provider Documentation" section prepared by Donya Calvert. . VTE Core Measure Inpt VTE Proph given/why not?: Enoxaparin (Lovenox)SQ, Warfarin (Coumadin) Reason no anticoag overlap I/P: Treatment provided - N/A Reason no anticoag overlap @DC: Treatment provided - N/A
--- NOTE | 2016-12-30 11:40 | Progress Note ---
Internal Med Progress Note Date of Service: Dec 30, 2016. Provider Documentation: SUBJECTIVE: still having SOB , hurts when taking deep breath requiring supplemental 02 -not on home 02 mentions having pain on left side of chest wall while taking deep breath had back pain , pain between her shoulders last night -improved no fever or chills no cough no pain or discomfort in abdomen , tolerating diet no bowel movement yet OBJECTIVE: Vital Signs-as noted below Exam: General-chronically ill appearing Eyes-sclera non icteric . PERRLA/EOMI ENT-NAD Neck-no JVD Lungs-clear to auscultate , no rales or wheeze noted Heart-regular S1/S2 Abdomen-soft, mid abdomen surgical incision /cheli present , bowel sound active Extremities-+ 2 bilat lower ext edema Neuro-AAO x3, no focal deficit Lab data as noted below. ASSESSMENT & PLAN: This is a 61yo F with a PMH of Multiple Sclerosis and ventral hernia s/p repair with mesh (12/12/16) who presents with SOB that started last night and was found to have bilateral PEs, R LE DVT and a UTI. Bilateral PEs: -presented with Sudden onset SOB and pleuritic pain x 1 day -VS stable; no tachycardia or tachypnea -CTA showing bilateral pulmonary emboli R>L -Hypercoagulability panel -report pending -Echo shows no evidence of R heart strain-normal RT function and activity -Most likely caused by immobility 2/2 hernia repair and extended hospital stay ( 11 days) -started won bridge tx with Lovenox and Coumadin -will need at least 5 days of over lap tx , and Lovenox can be D./macho after INR been therapeutic for 48 hrs -pt given information for Coumadin -booklet provided , aware of blood work /PT- INR monitoring -scrip for Sub q Lovenox sent to Pharmacy minimum Co-pay $8 -will need to follow up with anticoagulation clinic on discharge R LE DVT: -R posterior knee and calf pain x 1 day -R Extremity U/S showing a nearly occlusive DVT in R popliteal vein, extended to calf -cont bridge with Lovenox and Coumadin --will need to follow up with anticoagulation clinic on discharge Uncomplicated UTI: -UA found to have moderate amt of leuk esterase, >30 wbcs and 2+ occult blood - -Started on course of Cipro Leukocytosis improved urine culture > 3 organism , contaminated specimen repeat urine culture ordered C. diff infection: -Diagnosed during [place] admission on 12/22/16 -Continue metronidazole course last dose 01/05/17 -Repeat c diff toxin pending -no reports of diarrhea since admission S/p Ventral Hernia repair: -s/p retro -rectus incisional hernia repair with mesh on 12/12/16 post op recovery complicated by Small bowel obstruction /c diff infection had prolong hospital stay of 11 days ( discharged on 12/13/16 ) CT abdomen /pelvis : on 12/18 in [place] High grade small bowel obstruction postoperative seroma measuring approximately 3.9 x 6.5 x 7.5 cm (AP by TRV by CC). No evidence of rim enhancement to suggest abscess. -Deconditioned after extended hospital course and c diff infection. Ordered PT/ OT eval repeat CT abdomen /pelvis ordered for back pain 12/29/16 : Recent midline abdominal incision. There is a 6.7 cm subcutaneous gas and fluid collection deep to the incision site which favors a seroma at this time. Clinical follow-up recommended to ensure resolution and to exclude the possibility of a developing abscess. Clinical exam -pt does not appear to be septic , abdomen remains soft , no rebound , tolerating diet monitor for now on PO Cipro and Flagyl may need Surgical consult if pt develops worsening of abdominal pain , discomfort, evidence of ongoing fever Multiple Sclerosis: stable -will hold Interferon B injection for infection -UTI /C diff can be resumed on discharge Elevated Lipase: -resolved , normal level today tolerating diet well , no nausea /vomiting d/c IVF HTN: -Normotensive -Continue Lasix 20mg Steatohepatitis: stable Code status: FULL PCP: DR Wheeler DVT PROPHYLAXIS Lovenox /Coumadin DISPOSITION Expected to be discharged home when medically stable Vital Signs: Date Time Temp Pulse Resp B/P (MAP) Pulse Ox O2 Delivery O2 Flow Rate FiO2 12/30/16 08:00 Room Air 12/30/16 07:06 36.9 81 20 145/83 (103) 96 Nasal Cannula 2.0 12/30/16 04:00 Nasal Cannula 1.0 12/30/16 04:00 36.7 87 16 133/76 (95) 96 Nasal Cannula 1.0 12/30/16 00:09 36.7 81 18 128/72 (90) 95 Nasal Cannula 1.0 12/29/16 23:59 Nasal Cannula 1.0 12/29/16 20:00 Nasal Cannula 1.0 12/29/16 19:44 36.7 84 18 122/81 (95) 91 Nasal Cannula 1.0 12/29/16 16:00 Room Air 12/29/16 14:32 36.8 86 22 134/78 (96) 99 Room Air 12/29/16 14:09 84 20 148/73 95 Room Air 12/29/16 13:23 86 20 170/77 95 Room Air 12/29/16 12:10 96 Room Air 12/29/16 12:05 85 18 129/71 96 Room Air Lab Results: Results Past 24 Hours Test 12/29/16 14:50 12/29/16 15:27 12/30/16 05:13 Range/Units Urine Color YELLOW Urine Appearance CLOUDY CLEAR Urine pH 5.0 4.5-7.5 Urine Specific [place] > 1.045 1.000-1.030 Urine Protein NEG NEG Urine Glucose (UA) NEG NEG Urine Ketones NEG NEG Urine Occult Blood 2+ NEG Urine Nitrite NEG NEG Urine Bilirubin NEG NEG Urine Urobilinogen NEG NEG Urine Leukocyte Esterase MODERATE NEG Urine WBC (Auto) >30 0-5 /hpf Urine RBC (Auto) 5-10 0-4 /hpf Urine Hyaline Casts (Auto) 0 0-5 /lpf Urine Epithelial Cells (Auto) >30 0-5 /lpf Urine Bacteria (Auto) 1+ NEG Urine Yeast (Auto) NONE PRSENT White Blood Count 11.05 4.8-10.8 K/uL Red Blood Count 4.14 4.2-5.4 M/uL Hemoglobin 10.5 12.0-16.0 g/dL Hematocrit 33.8 37-47 % Mean Corpuscular Volume 81.6 80-100 fL Mean Corpuscular Hemoglobin 25.4 25-34 pg Mean Corpuscular Hemoglobin Concent 31.1 32-36 g/dl RDW Standard Deviation 47.9 36.4-46.3 fL RDW Coefficient of Variation 16.0 11.5-14.5 % Platelet Count 333 130-400 K/uL Mean Platelet Volume 11.2 7.4-10.4 fL Prothrombin Time 11.3 9.0-12.0 SECONDS Prothromb Time International Ratio 1.1 0.9-1.1 Sodium Level 137 136-145 mmol/L Potassium Level 3.5 3.5-5.1 mmol/L Chloride Level 103 98-107 mmol/L Carbon Dioxide Level 27 21-32 mmol/L Anion Gap 7.0 3-11 mmol/L Blood Urea Nitrogen 10 7-18 mg/dl Creatinine 0.78 0.60-1.20 mg/dl Est Creatinine Clear Calc Drug Dose 80.7 ml/min Estimated GFR () 95.1 Estimated GFR (Non- 82.1 BUN/Creatinine Ratio 12.7 10-20 Random Glucose 122 70-99 mg/dl Calcium Level 8.7 8.5-10.1 mg/dl Lipase 158 73-393 U/L Microbiology Results 12/30/16 Urine Culture, Received Pending 12/29/16 Urine Culture - Final, Complete THREE TYPES OF ORGANISMS PRESENT, ALL...
[2016-12-30] MEDS: OXYCODONE/ACETAMINOPHEN 5-325 TAB PO PRN ×2 (14:29→20:26)
[2016-12-30] MEDS: WARFARIN SOD 7.5 MG TAB PO SCH (16:25)
[2016-12-30] MEDS: CHOLECALCIFEROL 1000 INTER.UNIT TAB PO SCH (20:28)
[2016-12-30] MEDS: OMEGA-3 (PURIFIED FISH OIL) 1 GM CAP PO SCH (20:28)
[2016-12-31 03:46] VITALS: BP 137/86; PULSE 84; TEMP 37; O2SAT 90
[2016-12-31] MEDS: METRONIDAZOLE 500 MG TAB PO SCH ×3 (05:38→20:53)
[2016-12-31] MEDS: OXYCODONE/ACETAMINOPHEN 5-325 TAB PO PRN ×2 (05:42→14:01)
[2016-12-31 06:33] LABS: INR 1.1 (0.9-1.1); PROTHROMBIN TIME (PATIENT) 11.5 SECONDS (9.0-12.0)
[2016-12-31 07:01] LABS: BUN/CREATININE RATIO 14.2 (10-20); CALCIUM 9.1 mg/dl (8.5-10.1); CREATININE 0.59 mg/dl (0.60-1.20); POTASSIUM 3.6 mmol/L (3.5-5.1)
[2016-12-31] MEDS: CIPROFLOXACIN 500 MG TAB PO SCH ×2 (08:07→20:53)
[2016-12-31] MEDS: LACTOBACILLUS ACIDOPHILUS (FLORANEX) TAB PO SCH ×3 (08:07→16:13)
[2016-12-31] MEDS: ENOXAPARIN 100 MG/1ML SYR SQ SCH ×2 (08:07→20:54)
[2016-12-31 08:12] VITALS: BP 134/78; PULSE 79; TEMP 36.9; O2SAT 97
--- NOTE | 2016-12-31 10:21 | Progress Note ---
Medicine Progress Note Date & Time of Visit: Dec 31, 2016 at 09:56. Subjective Pt was seen and examined Sitting in bed comfortable with no distress Pt said that she feels ok she said that her last BM was on Sunday She denies any chest pain, palpitation, dizziness and SOB Objective Last 8 Hrs Date Time Temp Pulse Resp B/P (MAP) Pulse Ox O2 Delivery O2 Flow Rate FiO2 12/31/16 08:12 36.9 79 18 134/78 (96) 97 12/31/16 08:00 Room Air 12/31/16 04:00 Room Air 12/31/16 03:46 37.0 84 18 137/86 (103) 90 Room Air Physical Exam: General- No acute distress Head- atraumatic Eyes- PERRL, EOMI ENT- oropharynx clear Neck- supple, no JVD Lungs-No wheezing, no crackles Heart- regular rhythm; no murmur Abdomen- normal bowel sounds, nontender, post op surgical incision, healing well with no erythema and drainage Extremities- +edema LE Neuro- alert, oriented x 3; PERRL, EOMI; no facial palsy Skin- warm & dry Laboratory Results: Last 24 Hours Test 12/31/16 05:36 Prothrombin Time 11.5 SECONDS Prothromb Time International Ratio 1.1 Sodium Level 135 mmol/L Potassium Level 3.6 mmol/L Chloride Level 101 mmol/L Carbon Dioxide Level 26 mmol/L Anion Gap 8.0 mmol/L Blood Urea Nitrogen 8 mg/dl Creatinine 0.59 mg/dl Est Creatinine Clear Calc Drug Dose 104.5 ml/min Estimated GFR () 114.7 Estimated GFR (Non- 98.9 BUN/Creatinine Ratio 14.2 Random Glucose 126 mg/dl Calcium Level 9.1 mg/dl Assessment & Plan Bilateral PEs: presented with Sudden onset SOB and pleuritic pain Mostly due to prolong immobilization after recent hernia surgery repair due to extended hospital stay CTA chest showed bilateral pulmonary emboli R>L Hypercoagulability panel pending Starting on lovenox bridge with Coumadin Will need at least 5 days of over lap tx , and Lovenox can be D./macho after INR been therapeutic for 48 hrs Information given to patient for Coumadin -booklet provided On coumadin 7.5 mg Scrip for Sub q Lovenox sent to Pharmacy minimum Co-pay $8 Will follow up with anticoagulation clinic as an outpatient R LE DVT: R Extremity U/S showing a nearly occlusive DVT in R popliteal vein, extended to calf Provoked DVT due to recent hernia surgery repair On Lovenox bridge and Coumadin, INR 1.1 On coumadin 7.5 mg Will need to follow up with anticoagulation clinic on discharge Uncomplicated UTI: UA found to have moderate amt of leuk esterase, >30 wbcs and 2+ occult blood Leukocytosis improved Urine culture positive for more 3 than organism x2, possible contaminated specimen Continue cipro Asymptomatic C. diff infection: Diagnosed during [place] admission on 12/22/16 Continue metronidazole course last dose 01/05/17 denies any diarrhea since admission last BM was on Sunday S/p Ventral Hernia repair: s/p retro -rectus incisional hernia repair with mesh on 12/12/16 post op recovery complicated by Small bowel obstruction /c diff infection had prolong hospital stay of 11 days ( discharged on 12/13/16 ) CT abdomen /pelvis : on 12/18 in [place] High grade small bowel obstruction postoperative seroma measuring approximately 3.9 x 6.5 x 7.5 cm (AP by TRV by CC). No evidence of rim enhancement to suggest abscess. Repeat CT abdomen /pelvis on 12/29/16 : A 6.7 cm subcutaneous gas and fluid collection deep to the incision site which favors a seroma at this time. Clinical follow-up recommended to ensure resolution and to exclude the possibility of a developing abscess. Pt denies any abdominal pain Afebrile, no erythema and drainage from surgical incision on PO Cipro and Flagyl may need Surgical consult if pt develops abdominal pain, fever Multiple Sclerosis: Will hold Interferon B injection for infection -UTI /C diff can be resumed on discharge stable Elevated Lipase: tolerating diet well , no nausea /vomiting d/c IVF resolved HTN: Normotensive Continue Lasix 20mg Steatohepatitis: Stable Code status FULL CODE DVT PROPHYLAXIS Lovenox /Coumadin (INR 1.1) Disposition Will discharge home tomorrow Current Inpatient Medications: Current Inpatient Medications Medications (Trade) Dose Ordered Sig/Chelle Route Start Time Stop Time Status Last Admin Dose Admin Ioversol (Optiray 320) 100 ml UD PRN IV 12/29/16 10:30 01/02/17 10:29 Ondansetron HCl (Zofran Inj) 4 mg Q6H PRN IV 12/29/16 12:15 01/28/17 12:14 Albuterol (Ventolin Hfa Inhaler) 2 puffs Q4 PRN INH 12/29/16 12:15 01/28/17 12:14 Cholecalciferol (Vitamin D Tab) 1,000 inter.unit QPM PO 12/29/16 21:00 01/28/17 20:59 Metronidazole (Flagyl Tab) 500 mg Q8 PO 12/29/16 16:00 01/08/17 15:59 12/31/16 05:38 500 MG Fish Oil ([place]-3 (Purified Fish Oil) Cap) 1 gm QPM PO 12/29/16 21:00 01/28/17 20:59 Warfarin Sodium (Coumadin Tab) 7.5 mg DAILY@16 PO 12/30/16 16:00 01/29/17 15:59 12/30/16 16:25 7.5 MG Lactobacillus Acidophilus (Floranex Tab) 4 tab TIDM PO 12/29/16 16:45 01/28/17 17:59 12/31/16 08:07 4 TAB Enoxaparin Sodium (Lovenox Inj) 100 mg Q12 SQ 12/29/16 15:00 01/28/17 14:59 12/31/16 08:07 100 MG Ciprofloxacin (Cipro Tab) 500 mg BID PO 12/29/16 19:00 01/03/17 18:59 12/31/16 08:07 500 MG Interferon Beta 1b (Betaseron) 0.3 mg Q2D@2100 SC 12/29/16 21:00 01/28/17 20:59 Future Hold 12/29/16 19:58 0.3 MG Oxycodone/ Acetaminophen (Percocet 5-325mg Tab) pain not relieved by tylenol Q6H PRN PO 12/29/16 20:15 01/12/17 20:14 12/31/16 05:42 2 TAB Morphine Sulfate (MoRPHine SULFATE INJ) 4 mg Q3H PRN IV 12/29/16 20:15 01/12/17 20:14
[2016-12-31 11:54] VITALS: BP 118/75; PULSE 86; TEMP 36.9; O2SAT 95
[2016-12-31 12:49] VITALS: PULSE 84; O2SAT 100
[2016-12-31 15:34] VITALS: BP 144/77; PULSE 92; TEMP 37; O2SAT 90
[2016-12-31] MEDS: WARFARIN SOD 7.5 MG TAB PO SCH (16:12)
[2016-12-31] MEDS: CHOLECALCIFEROL 1000 INTER.UNIT TAB PO SCH (20:52)
[2016-12-31] MEDS: OMEGA-3 (PURIFIED FISH OIL) 1 GM CAP PO SCH (20:52)
[2016-12-31 23:42] VITALS: BP 126/77; PULSE 88; TEMP 37.1; O2SAT 92
[2017-01-01 04:00] VITALS: BP 128/84; PULSE 92; TEMP 36.7; O2SAT 93
[2017-01-01] MEDS: OXYCODONE/ACETAMINOPHEN 5-325 TAB PO PRN ×3 (04:03→16:29)
[2017-01-01] MEDS: METRONIDAZOLE 500 MG TAB PO SCH ×3 (05:25→21:31)
[2017-01-01] MEDS: MoRPHine SULFATE 4 MG/ML 1 ML CARP\\VIAL IV PRN ×2 (05:26→14:29)
[2017-01-01 06:05] LABS: HEMATOCRIT 32.9 % (37-47); MEAN CELL VOLUME 80.4 fL (80-100); MEAN CORPUSCULAR HEMOGLOBIN 25.4 pg (25-34); MEAN CORPUSCULAR HGB CONC 31.6 g/dl (32-36); MEAN PLATELET VOLUME 11.1 fL (7.4-10.4); PLATELET COUNT 381 K/uL (130-400); RED BLOOD COUNT 4.09 M/uL (4.2-5.4); WHITE BLOOD COUNT 12.02 K/uL (4.8-10.8)
[2017-01-01 06:29] LABS: INR 1.1 (0.9-1.1); PROTHROMBIN TIME (PATIENT) 12.3 SECONDS (9.0-12.0)
[2017-01-01 06:43] LABS: BUN/CREATININE RATIO 9.4 (10-20); CALCIUM 8.8 mg/dl (8.5-10.1); CREATININE 0.58 mg/dl (0.60-1.20); POTASSIUM 3.4 mmol/L (3.5-5.1)
[2017-01-01] MEDS: LACTOBACILLUS ACIDOPHILUS (FLORANEX) TAB PO SCH ×3 (08:01→16:01)
[2017-01-01] MEDS: CIPROFLOXACIN 500 MG TAB PO SCH ×2 (08:01→21:30)
[2017-01-01] MEDS: ENOXAPARIN 100 MG/1ML SYR SQ SCH ×2 (08:02→21:32)
[2017-01-01 08:12] VITALS: BP 129/64; PULSE 88; TEMP 36.8; O2SAT 95
[2017-01-01] MEDS ORDERED: POTASSIUM CHLORIDE 20 MEQ TABCR PO ONE (09:00)
--- NOTE | 2017-01-01 09:13 | Progress Note ---
Medicine Progress Note Date & Time of Visit: Jan 01, 2017 at 09:04. Subjective Pt was seen and examined Lying in bed with no distress Pt said that she was feels fine she said that in the middle of the night she had some back pain she said the pain woke her up pain improved with the morphine denies any chest pain, palpitation, dizziness and sob Objective Last 8 Hrs Date Time Temp Pulse Resp B/P (MAP) Pulse Ox O2 Delivery O2 Flow Rate FiO2 01/01/17 08:12 36.8 88 18 129/64 (85) 95 01/01/17 04:00 Room Air 01/01/17 04:00 36.7 92 18 128/84 (99) 93 Room Air Physical Exam: General- No acute distress Head- atraumatic Eyes- PERRL, EOMI ENT- oropharynx clear Neck- supple, no JVD Lungs-No wheezing, no crackles Heart- regular rhythm; no murmur Abdomen- normal bowel sounds, nontender, post op surgical incision, healing well with no erythema and drainage Extremities- +edema LE Neuro- alert, oriented x 3; PERRL, EOMI; no facial palsy Skin- warm & dry Laboratory Results: Last 24 Hours Test 01/01/17 05:41 White Blood Count 12.02 K/uL Red Blood Count 4.09 M/uL Hemoglobin 10.4 g/dL Hematocrit 32.9 % Mean Corpuscular Volume 80.4 fL Mean Corpuscular Hemoglobin 25.4 pg Mean Corpuscular Hemoglobin Concent 31.6 g/dl RDW Standard Deviation 46.0 fL RDW Coefficient of Variation 15.7 % Platelet Count 381 K/uL Mean Platelet Volume 11.1 fL Prothrombin Time 12.3 SECONDS Prothromb Time International Ratio 1.1 Sodium Level 133 mmol/L Potassium Level 3.4 mmol/L Chloride Level 100 mmol/L Carbon Dioxide Level 24 mmol/L Anion Gap 9.0 mmol/L Blood Urea Nitrogen 5 mg/dl Creatinine 0.58 mg/dl Est Creatinine Clear Calc Drug Dose 106.3 ml/min Estimated GFR () 115.3 Estimated GFR (Non- 99.5 BUN/Creatinine Ratio 9.4 Random Glucose 117 mg/dl Calcium Level 8.8 mg/dl Assessment & Plan Bilateral PEs: presented with Sudden onset SOB and pleuritic pain Mostly due to prolong immobilization after recent hernia surgery repair due to extended hospital stay CTA chest showed bilateral pulmonary emboli R>L Hypercoagulability panel pending Starting on lovenox bridge with Coumadin Will need at least 5 days of over lap tx , and Lovenox can be D./macho after INR been therapeutic for 48 hrs Information given to patient for Coumadin -booklet provided On coumadin 7.5 mg, INR 1.1to Scrip for Sub q Lovenox sent to Pharmacy minimum Co-pay $8 Will follow up with anticoagulation clinic as an outpatient Check INR on Sun R LE DVT: R Extremity U/S showing a nearly occlusive DVT in R popliteal vein, extended to calf Provoked DVT due to recent hernia surgery repair On Lovenox bridge and Coumadin, INR 1.1 On coumadin 7.5 mg Will need to follow up with anticoagulation clinic on discharge Uncomplicated UTI: UA found to have moderate amt of leuk esterase, >30 wbcs and 2+ occult blood Leukocytosis improved Urine culture positive for more 3 than organism x2, possible contaminated specimen Received 3 days course of cipro Asymptomatic C. diff infection: Diagnosed during [place] admission on 12/22/16 Continue metronidazole course last dose 01/05/17 denies any diarrhea since admission last BM was on Sunday Constipation Recent hx of Cdiff Has not had a BM since Sunday On Narcotic will give [id number] S/p Ventral Hernia repair: s/p retro -rectus incisional hernia repair with mesh on 12/12/16 post op recovery complicated by Small bowel obstruction /c diff infection had prolong hospital stay of 11 days ( discharged on 12/13/16 ) CT abdomen /pelvis : on 12/18 in [place] High grade small bowel obstruction postoperative seroma measuring approximately 3.9 x 6.5 x 7.5 cm (AP by TRV by CC). No evidence of rim enhancement to suggest abscess. Repeat CT abdomen /pelvis on 12/29/16 : A 6.7 cm subcutaneous gas and fluid collection deep to the incision site which favors a seroma at this time. Clinical follow-up recommended to ensure resolution and to exclude the possibility of a developing abscess. Pt denies any abdominal pain Afebrile, no erythema and drainage from surgical incision on PO Cipro and Flagyl may need Surgical consult if pt develops abdominal pain, fever Multiple Sclerosis: Will hold Interferon B injection for infection -UTI /C diff can be resumed on discharge stable Elevated Lipase: tolerating diet well , no nausea /vomiting d/c IVF resolved HTN: Normotensive Continue Lasix 20mg Steatohepatitis: Stable Code status FULL CODE DVT PROPHYLAXIS Lovenox /Coumadin (INR 1.1) Disposition Will discharge home today Follow up with the coag clinic Check INR on Sunday Current Inpatient Medications: Current Inpatient Medications Medications (Trade) Dose Ordered Sig/Chelle Route Start Time Stop Time Status Last Admin Dose Admin Ioversol (Optiray 320) 100 ml UD PRN IV 12/29/16 10:30 01/02/17 10:29 Ondansetron HCl (Zofran Inj) 4 mg Q6H PRN IV 12/29/16 12:15 01/28/17 12:14 Albuterol (Ventolin Hfa Inhaler) 2 puffs Q4 PRN INH 12/29/16 12:15 01/28/17 12:14 Cholecalciferol (Vitamin D Tab) 1,000 inter.unit QPM PO 12/29/16 21:00 01/28/17 20:59 Metronidazole (Flagyl Tab) 500 mg Q8 PO 12/29/16 16:00 01/08/17 15:59 01/01/17 05:25 500 MG Fish Oil ([place]-3 (Purified Fish Oil) Cap) 1 gm QPM PO 12/29/16 21:00 01/28/17 20:59 Warfarin Sodium (Coumadin Tab) 7.5 mg DAILY@16 PO 12/30/16 16:00 01/29/17 15:59 12/31/16 16:12 7.5 MG Lactobacillus Acidophilus (Floranex Tab) 4 tab TIDM PO 12/29/16 16:45 01/28/17 17:59 01/01/17 08:01 4 TAB Enoxaparin Sodium (Lovenox Inj) 100 mg Q12 SQ 12/29/16 15:00 01/28/17 14:59 01/01/17 08:02 100 MG Ciprofloxacin (Cipro Tab) 500 mg BID PO 12/29/16 19:00 01/03/17 18:59 01/01/17 08:01 500 MG Interferon Beta 1b (Betaseron) 0.3 mg Q2D@2100 SC 12/29/16 21:00 01/28/17 20:59 Future Hold 12/29/16 19:58 0.3 MG Oxycodone/ Acetaminophen (Percocet 5-325mg Tab) pain not relieved by tylenol Q6H PRN PO 12/29/16 20:15 01/12/17 20:14 01/01/17 04:03 2 TAB Morphine Sulfate (MoRPHine SULFATE INJ) 4 mg Q3H PRN IV 12/29/16 20:15 01/12/17 20:14 01/01/17 05:26 4 MG Potassium Chloride (Klor-Con Tab) 20 meq ONE ONCE PO 01/01/17 09:00 01/01/17 09:01
[2017-01-01] MEDS ORDERED: DOCUSATE SODIUM/SENNA 50/8.6MG TAB PO ONE (09:45)
[2017-01-01 11:45] VITALS: BP 139/69; PULSE 80; TEMP 36.9; O2SAT 99
[2017-01-01 15:28] VITALS: BP 132/82; PULSE 74; TEMP 36.7; O2SAT 92
[2017-01-01] MEDS: WARFARIN SOD 7.5 MG TAB PO SCH (16:00)
[2017-01-01] MEDS ORDERED: OXYC-609 PO (16:26)
[2017-01-01 20:06] VITALS: BP 149/91; PULSE 82; TEMP 36.8; O2SAT 93
[2017-01-01] MEDS: CHOLECALCIFEROL 1000 INTER.UNIT TAB PO SCH (21:00)
[2017-01-01] MEDS: OMEGA-3 (PURIFIED FISH OIL) 1 GM CAP PO SCH (21:00)
[2017-01-01 23:59] VITALS: O2SAT 91
[2017-01-02] VITALS: BP 146/80; PULSE 88; TEMP 37; O2SAT 91
[2017-01-02] MEDS: OXYCODONE/ACETAMINOPHEN 5-325 TAB PO PRN ×3 (00:02→11:46)
[2017-01-02 04:00] VITALS: BP 126/82; PULSE 81; TEMP 36.8; O2SAT 93
[2017-01-02] MEDS: METRONIDAZOLE 500 MG TAB PO SCH ×2 (05:35→13:44)
[2017-01-02 07:07] LABS: INR 1.3 (0.9-1.1); PROTHROMBIN TIME (PATIENT) 14.5 SECONDS (9.0-12.0)
[2017-01-02 07:23] LABS: BUN/CREATININE RATIO 8.5 (10-20); CREATININE 0.54 mg/dl (0.60-1.20); POTASSIUM 3.5 mmol/L (3.5-5.1)
[2017-01-02 08:03] VITALS: BP 122/73; PULSE 81; TEMP 36.6; O2SAT 92
[2017-01-02] MEDS: LACTOBACILLUS ACIDOPHILUS (FLORANEX) TAB PO SCH ×2 (08:24→11:42)
[2017-01-02] MEDS: CIPROFLOXACIN 500 MG TAB PO SCH (08:25)
[2017-01-02] MEDS: ENOXAPARIN 100 MG/1ML SYR SQ SCH (08:26)
[2017-01-02 11:40] VITALS: BP 129/68; PULSE 84; TEMP 36.5; O2SAT 95
--- NOTE | 2017-01-02 12:51 | Progress Note ---
Medicine Progress Note Date & Time of Visit: Jan 02, 2017 at 12:42. Subjective patient seen resting in bed, comfortable states she feels better overall has mild low back pain denies chest pain, dyspnea, palpitations ambulating with no problems denies bleeding no abdominal pain, wall pain, discharge states she is ready and would like to be discharged today Objective Last 8 Hrs Date Time Temp Pulse Resp B/P (MAP) Pulse Ox O2 Delivery O2 Flow Rate FiO2 01/02/17 12:00 Room Air 01/02/17 11:40 36.5 84 16 129/68 (88) 95 01/02/17 08:03 36.6 81 18 122/73 (89) 92 01/02/17 08:00 Room Air Physical Exam: General- oriented x 3, not in distress, speaks in sentences with no effort Head- atraumatic Eyes- EOMI, anicteric ENT- oropharynx clear Neck- supple, no JVD Lungs- clear breath sounds bilaterally, no rales/wheezes Heart- regular rhythm; no murmur, normal rate Abdomen- normal bowel sounds, soft, nontender surgical site with incision in place, no erythema/warmth/tenderness/discharge Extremities- no pretibial edema, no calf tenderness Neuro- alert, oriented x 3;no gross focal deficits Skin- warm & dry Laboratory Results: Last 24 Hours Test 01/02/17 06:41 Prothrombin Time 14.5 SECONDS Prothromb Time International Ratio 1.3 Sodium Level 134 mmol/L Potassium Level 3.5 mmol/L Chloride Level 99 mmol/L Carbon Dioxide Level 26 mmol/L Anion Gap 9.0 mmol/L Blood Urea Nitrogen 5 mg/dl Creatinine 0.54 mg/dl Est Creatinine Clear Calc Drug Dose 114.2 ml/min Estimated GFR () 118.0 Estimated GFR (Non- 101.8 BUN/Creatinine Ratio 8.5 Random Glucose 113 mg/dl Calcium Level 9.0 mg/dl Assessment & Plan Per Dr. Renner's notes Bilateral PEs: presented with Sudden onset SOB and pleuritic pain Mostly due to prolong immobilization after recent hernia surgery repair due to extended hospital stay CTA chest showed bilateral pulmonary emboli R>L Hypercoagulability panel pending Starting on lovenox bridge with Coumadin Will need at least 5 days of over lap tx , and Lovenox can be D./macho after INR been therapeutic for 48 hrs Information given to patient for Coumadin -booklet provided On coumadin 7.5 mg, INR 1.1day Scrip for Sub q Lovenox sent to Pharmacy minimum Co-pay $8 Will follow up with anticoagulation clinic as an outpatient Check INR on Sun -- stable for discharge R LE DVT: R Extremity U/S showing a nearly occlusive DVT in R popliteal vein, extended to calf Provoked DVT due to recent hernia surgery repair On Lovenox bridge and Coumadin, INR 1.1 On coumadin 7.5 mg Will need to follow up with anticoagulation clinic on discharge Uncomplicated UTI: UA found to have moderate amt of leuk esterase, >30 wbcs and 2+ occult blood Leukocytosis improved Urine culture positive for more 3 than organism x2, possible contaminated specimen Received 3 days course of cipro Asymptomatic C. diff infection: Diagnosed during [place] admission on 12/22/16 Continue metronidazole course last dose 01/05/17 denies any diarrhea since admission Constipation Recent hx of Cdiff Has not had a BM since Sunday -- advised to take Senokot daily S/p Ventral Hernia repair: s/p retro -rectus incisional hernia repair with mesh on 12/12/16 post op recovery complicated by Small bowel obstruction /c diff infection had prolong hospital stay of 11 days ( discharged on 12/13/16 ) CT abdomen /pelvis : on 12/18 in [place] High grade small bowel obstruction postoperative seroma measuring approximately 3.9 x 6.5 x 7.5 cm (AP by TRV by CC). No evidence of rim enhancement to suggest abscess. Repeat CT abdomen /pelvis on 12/29/16 : A 6.7 cm subcutaneous gas and fluid collection deep to the incision site which favors a seroma at this time. Clinical follow-up recommended to ensure resolution and to exclude the possibility of a developing abscess. Pt denies any abdominal pain Afebrile, no erythema and drainage from surgical incision -- received PO Cipro as inpatient -- no signs of infection at this time -- advised to ff up with Surgeon sooner, within 1 week Multiple Sclerosis: resume Interferon B HTN: Continue Lasix 20mg Steatohepatitis: Stable Code status FULL CODE DVT PROPHYLAXIS Lovenox /Coumadin (INR 1.1) Disposition d/c home ff up with PCP on 01/04/17 Coumadin to call patient re: ff up this week ff up with Surgeon in 1 week Current Inpatient Medications: Current Inpatient Medications Medications (Trade) Dose Ordered Sig/Chelle Route Start Time Stop Time Status Last Admin Dose Admin Ondansetron HCl (Zofran Inj) 4 mg Q6H PRN IV 12/29/16 12:15 01/28/17 12:14 Albuterol (Ventolin Hfa Inhaler) 2 puffs Q4 PRN INH 12/29/16 12:15 01/28/17 12:14 Cholecalciferol (Vitamin D Tab) 1,000 inter.unit QPM PO 12/29/16 21:00 01/28/17 20:59 Metronidazole (Flagyl Tab) 500 mg Q8 PO 12/29/16 16:00 01/08/17 15:59 01/02/17 05:35 500 MG Fish Oil ([place]-3 (Purified Fish Oil) Cap) 1 gm QPM PO 12/29/16 21:00 01/28/17 20:59 Warfarin Sodium (Coumadin Tab) 7.5 mg DAILY@16 PO 12/30/16 16:00 01/29/17 15:59 01/01/17 16:00 7.5 MG Lactobacillus Acidophilus (Floranex Tab) 4 tab TIDM PO 12/29/16 16:45 01/28/17 17:59 01/02/17 11:42 4 TAB Enoxaparin Sodium (Lovenox Inj) 100 mg Q12 SQ 12/29/16 15:00 01/28/17 14:59 01/02/17 08:26 100 MG Ciprofloxacin (Cipro Tab) 500 mg BID PO 12/29/16 19:00 01/03/17 18:59 01/02/17 08:25 500 MG Interferon Beta 1b (Betaseron) 0.3 mg Q2D@2100 SC 12/29/16 21:00 01/28/17 20:59 Future Hold 12/29/16 19:58 0.3 MG Oxycodone/ Acetaminophen (Percocet 5-325mg Tab) pain not relieved by tylenol Q6H PRN PO 12/29/16 20:15 01/12/17 20:14 01/02/17 11:46 2 TAB Morphine Sulfate (MoRPHine SULFATE INJ) 4 mg Q3H PRN IV 12/29/16 20:15 01/12/17 20:14 01/01/17 14:29 4 MG
[2017-01-02 13:45] VITALS: BP 129/68; PULSE 84; TEMP 36.5; O2SAT 95
--- NOTE | 2017-01-03 20:39 | Discharge Summary ---
Discharge Summary Date of Service Jan 03, 2017. Discharge Summary Admission Date: Dec 29, 2016 at 12:15 Discharge Date: Jan 01, 2017 Discharge Disposition: Home Principal Diagnosis: Bilateral Pulmonary Embolism Secondary Diagnoses/Problems: Please refer to hospital course below. Procedures: (CHEST FOR PE) ANGIO WITH CT DOSE: 483.59 mGy.cm HISTORY: Chest pain dyspnea TECHNIQUE: Multiaxial CT images of the chest were performed following the intravenous administration of contrast to evaluate the pulmonary arteries. Maximal intensity projection images were also obtained. A dose lowering technique was utilized adhering to the principles of ALARA. COMPARISON STUDY: None. FINDINGS: Findings of bilateral extensive pulmonary emboli. There is worse on the right hemithorax compared to the left. There is involvement of the distal right main pulmonary artery with involvement of the right upper as well as right lower lobe pulmonary arterial vasculature. Less prominent findings seen involving the second-order vessels of the left hemithorax. There is a small right effusion. There is a trace amount pleural fluid left base. Parenchymal infiltrative change both lung bases versus dependent atelectatic changes present. Thoracic aorta is negative for aneurysm or dissection. IMPRESSION: Bilateral pulmonary pulmonary emboli worse on the right compared to the left. Bibasilar atelectatic and/or infiltrative change. Small right and to a lesser extent left pleural effusion. CT ABDOMEN CT DOSE: 1056.09 mGy.cm HISTORY: back pain on blood thinners, ro bleed TECHNIQUE: Multiaxial CT images of the abdomen and pelvis were performed without contrast. A dose lowering technique was utilized adhering to the principles of ALARA. COMPARISON STUDY: Chest CTA 12/29/2016. FINDINGS: Small right pleural effusion, unchanged. Patchy bilateral lower lobe densities. This may represent atelectasis and/or pulmonary infarct given the pulmonary emboli. No pneumoperitoneum. No pneumatosis. No suspicious lytic or blastic osseous lesions. Recent midline incision with multiple skin cheli. A 6.7 cm subcutaneous gas and fluid collection deep to the skin cheli/incision site. No evidence for a retroperitoneal hematoma. Mild hepatic steatosis. The unenhanced spleen, adrenal glands, and pancreas are unremarkable. The gallbladder remains mildly distended. No gallbladder wall thickening. No retroperitoneal lymphadenopathy. Contrast within the renal collecting systems from the prior CT examination. There is also contrast within the bladder. No hydronephrosis. There are 2 hypodense lesions within the right kidney with the largest in the lower pole measuring 5 cm. These are incompletely characterized on this noncontrast study. There are multiple left peripelvic renal cysts. Prior appendectomy. No bowel wall thickening or obstruction. IMPRESSION: 1. No evidence for a retroperitoneal hematoma. 2. No change in the small right pleural effusion and bibasilar densities. This may represent atelectasis persists or pulmonary infarcts given the patient's history of pulmonary emboli. 3. Recent midline abdominal incision. There is a 6.7 cm subcutaneous gas and fluid collection deep to the incision site which favors a seroma at this time. Clinical follow-up recommended to ensure resolution and to exclude the possibility of a developing abscess. 4. The gallbladder remains mildly distended. No gallbladder wall thickening. ULTRASOUND RIGHT LOWER EXTREMITY VENOUS CLINICAL HISTORY: Right leg swelling. COMPARISON STUDY: No priors. TECHNIQUE: Real-time, grayscale, and color Doppler sonography of the deep veins of the right lower extremity was performed from the inguinal crease to the calf. Compression and augmentation were utilized. FINDINGS: There is nearly occlusive deep venous thrombosis identified in the right popliteal vein. This extends into the calf within the peroneal and posterior tibial veins. The common femoral and superficial femoral veins are patent and normally compressible. The greater saphenous vein and the profunda femoris vein at the junction with the common femoral vein are clear. IMPRESSION: There is nearly occlusive deep venous thrombosis identified in the right popliteal vein which extends into the calf. Pending Studies/Follow-Up: Please refer to hospital course below. Medication Reconciliation New Medications: Enoxaparin (Enoxaparin Sodium) 100 Mg/Ml Inj 100 MG SQ Q12 for 5 Days, #10 EA 1 Refill Warfarin Sod (Coumadin) 7.5 Mg Tab 7.5 MG PO DAILY for 30 Days, #30 TAB 2 Refills Changed Medications: Oxycodone HCl (Oxycodone HCl) 5 Mg Tab 5 MG PO Q8 PRN for Pain for 3 Days, #9 (Changed from: Q6; 20) Continued Medications: Albuterol (Proair Hfa) Aers 2 PUFFS INH Q4 PRN for SOB/Wheezing Cholecalciferol (Vitamin D) 1,000 Inter.unit Tab 1000 INTER.UNIT PO QPM, TAB Furosemide (Lasix) 20 Mg Tab 20 MG PO QAM, TAB Interferon Beta-1B (Betaseron) 0.3 Mg Inj 1 DOSE INJ Q2D LAST DOSE WAS SUNDAY 04/01 Metronidazole (Metronidazole) 500 Mg Tab 500 MG PO TID, #39 [place]-3 Fatty Acids ([place] 3) 1 Cap Cap 1 CAP PO QPM Potassium Chloride (Potassium Chloride Er) 10 Meq Tab 2 TAB PO QAM for 90 Days, #90 TAB 1 Refill Discontinued Medications: Ibuprofen (Ibuprofen) 600 Mg Tab 600 MG PO Q6H PRN for Pain for 7 Days, #40 TAB Admission Information HPI (per Admitting provider): This is a 61yo F with a PMH of Multiple Sclerosis and ventral hernia s/p repair with mesh (12/12/16) who presents with SOB that started last night. Patient was getting ready for bed when she experienced sudden onset SOB with associated posterior R shoulder pain. As the night progressed, she noticed that pain was worse with inspiration. In the account coordinator, patient noticed that both legs were swollen, so she took two furosemide tabs (40mg total) to decrease fluid, but noted no change. Upon ambulation to the restroom, patient noticed a sharp pain on the back of her R leg from her knee to her calf. Pain resolved once she was back in bed lying down. Denies any personal or family history of DVT/PE or clotting disorders Denies any lightheadedness, headache, palpitations, chest pain, wheezing, nausea, vomiting or skin changes. Patient had a retro-rectus incisional hernia repair with mesh performed at [facility] on 12/12/26. Was on Lovenox prophylaxis during admission. States that post-op hospital course was complicated by nausea, vomiting and diarrhea that contributed to an extended hospital stay (11 days). Was sedentary during that time as well as during the past week when recovering at home. Was diagnosed with C diff 1 day prior to discharge on 12/23/16 and was started on a course of metronidazole. Has had periods of constipation over the past few days until taking a stool softener and laxative last evening. Since then, patient endorses 4 episodes of loose stool. Physical Exam (per Admitting): General Appearance: WD/WN, no apparent distress Head: normocephalic, atraumatic Eyes: normal inspection, PERRL, sclerae normal ENT: normal ENT inspection, hearing grossly normal Neck: supple, no adenopathy, thyroid normal, trachea midline Respiratory/Chest: chest non-tender, no respiratory distress, no accessory muscle use, + decreased breath sounds (Inspiration limited 2/2 pleuritic pain. ) Cardiovascular: regular rate, rhythm, no gallop, no murmur, normal peripheral pulses Abdomen/GI: normal bowel sounds (Presence of well-healing vertical midline incision with cheli. 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 Renner's notes Bilateral Pulmonary Embolism presented with Sudden onset SOB and pleuritic pain Mostly due to prolong immobilization after recent hernia surgery repair due to extended hospital stay CTA chest showed bilateral pulmonary emboli R>L Hypercoagulability panel pending Starting on lovenox bridge with Coumadin On coumadin 7.5 mg Will follow up with anticoagulation clinic as an outpatient Check INR on Sun R LE DVT: R Extremity U/S showing a nearly occlusive DVT in R popliteal vein, extended to calf Provoked DVT due to recent hernia surgery repair On Lovenox bridge and Coumadin, INR 1.1 On coumadin 7.5 mg Will need to follow up with anticoagulation clinic on discharge Uncomplicated UTI: UA found to have moderate amt of leuk esterase, >30 wbcs and 2+ occult blood Leukocytosis improved Urine culture positive for more 3 than organism x2, possible contaminated specimen Received 3 days course of cipro Asymptomatic C. diff infection: Diagnosed during [facility] admission on 12/22/16 Continue metronidazole course last dose 01/05/17 denies any diarrhea since admission Constipation Recent hx of Cdiff Has not had a BM since Sunday -- advised to take Senokot daily S/p Ventral Hernia repair: s/p retro -rectus incisional hernia repair with mesh on 12/12/16 post op recovery complicated by Small bowel obstruction /c diff infection had prolong hospital stay of 11 days ( discharged on 12/13/16 ) CT abdomen /pelvis : on 12/18 in [facility] High grade small bowel obstruction postoperative seroma measuring approximately 3.9 x 6.5 x 7.5 cm (AP by TRV by CC). No evidence of rim enhancement to suggest abscess. Repeat CT abdomen /pelvis on 12/29/16 : A 6.7 cm subcutaneous gas and fluid collection deep to the incision site which favors a seroma at this time. Clinical follow-up recommended to ensure resolution and to exclude the possibility of a developing abscess. Pt denies any abdominal pain Afebrile, no erythema and drainage from surgical incision -- received PO Cipro as inpatient -- no signs of infection at this time -- advised to ff up with Surgeon sooner, within 1 week Right Kidney Hypodense Lesions -- noted on CT abdomen (full report above in the procedure section) "There are 2 hypodense lesions within the right kidney with the largest in the lower pole measuring 5 cm. These are incompletely characterized on this noncontrast study." -- follow up as outpatient Multiple Sclerosis: resume Interferon B HTN: Continue Lasix 20mg Steatohepatitis: Stable Code status FULL CODE DVT PROPHYLAXIS Lovenox /Coumadin Disposition d/c home ff up with PCP on 01/04/17 Coumadin to call patient re: ff up this week ff up with Surgeon in 1 week Total time spent on discharge = 30 minutes This includes examination of the patient, discharge planning, medication reconciliation, and communication with other providers. Discharge Instructions Discharge Instructions Date of Service Admission Reason for Admission: Dvt, Pulmonary Embolism Discharge Discharge Diagnosis / Problem: (1) Deep vein thrombosis (DVT) of right lower extremity (2) Bilateral pulmonary embolism VTE Date & Time Date of VTE Diagnosis: Dec 29, 2016 Time of VTE Diagnosis: 10:27 Discharge Goals Goal(s): Decrease discomfort, Diagnostic testing, Therapeutic intervention Activity Recommendations Activity Limitations: resume your previous activity Shower/Bathe: no limitations . Instructions / Follow-Up Instructions / Follow-Up HOSPITAL FOLLOW UP : 01/03/2017 10:00 AM Zeferino Paniagua MD [facility] SURGERY FOLLOW UP : 01/17/2017 9:30 AM Kaycee Burroughs [facility] WITH [facility]ATION /COAGULATION CLINIC FOR MONITORING OF PT/INR AND ADJUSTMENT OF COUMADIN DOSE YOU ARE SENT HOME WITH LOVENOX BRIDGE THERAPY -WHICH WILL BE DISCONTINUED AFTER BLOOD WORK CHECK ( PT/INR ) AT COAGULATION CLINIC DO NOT TAKE ASPIRIN , MOTRIN , ADVIL , IBUPROFEN-INCREASED RISK OF BLEEDING WHILE TAKING COUMADIN PLEASE NOTIFY YOUR FAMILY PHYSICIAN WITH ANY EVIDENCE OF DARK STOOL , BLOOD IN URINE , NOSE BLEED Medication Instructions: * Warfarin is a medicine prescribed to prevent blood clots * Warfarin will thin your blood and help prevent new clots * Take your medications exactly as directed * Never skip a dose. Never take a double dose. If you miss a dose, take it as soon as you remember * It is important for your doctor to monitor your prothrombin time (PT). This is a lab test * Keep your appointment for lab tests Risk of Adverse Drug Reactions and Interactions: * Warfarin increases your risk of bleeding * The food you eat and other medications you take can affect how Warfarin works in your body * Ask your doctor about daily aspirin therapy * It is very important to talk with your doctor about all of the other medicines , antibiotics, vitamins or herbal products that you are taking * All of your medication must be approved by your doctor, including new medicines, as well as medicines you have taken before you started taking Warfarin Diet: * In order for Warfarin to work properly, it is important to keep your intake of Vitamin K as consistent as possible * You should avoid any sudden change in Vitamin K intake * Report any significant changes in your diet or weight to your doctor Call your Primary Care doctor if you experience any of the following: * Swelling or Pain in your leg * Sudden, continuous pain deep in a muscle * Pain that worsens when you are active or when you stand still for a long time * Chest Pain * Sudden Shortness of Breath * Rapid or pounding heart beat * Fainting * Dizziness * Cough with blood or bloody sputum * Sweating more than normal * Bruises * Heavy or uncontrolled bleeding * Blood in your urine, stool or vomit * Black or tarry stools Caring for Your Self at Home: * Avoid sitting, standing or lying down for long periods without moving your legs and feet * When traveling by car, stop to get out and move around at least once every 3 hours * On long airplane, train or bus rides, get up and move around when possible * If you can't get up, wiggle your toes and tighten your calves to keep your blood moving Follow Up: It is important for you to keep your follow up appointments with your medical provider. Current Hospital Diet Patient's current hospital diet: Low Fat Diet Discharge Diet Recommended Diet: Low Sodium Diet (2gm Na) Pending Studies Studies pending at discharge: yes List of pending studies: RESULT FOR HYPERCOAGULABLE WORK UP ORDERED AT [facility] Medical Emergencies . Who to Call and When: Medical Emergencies: If at any time you feel your situation is an emergency, please call 911 immediately. . Non-Emergent Contact Non-Emergency issues call your: Primary Care Provider . . "Provider Documentation" section prepared by Donya Calvert. . VTE Core Measure Inpt VTE Proph given/why not?: Enoxaparin (Lovenox)SQ, Warfarin (Coumadin) Reason no anticoag overlap I/P: Treatment provided - N/A Reason no anticoag overlap @DC: Treatment provided - N/A Addendum: Becky Renner M.D. on 01/01/17 @ 16:23 Discharge Inst - Addendum Addendum Provider: Check INR on Sunday (INR today 1.1) Follow up with Coumadin clinic Continue Coumadin 7.5 mg ( next dose to be given tomorrow afternoon) Addendum Notes were documented by provider Becky Renner. Addendum: Becky Renner M.D. on 01/01/17 @ 16:25 Discharge Inst - Addendum Addendum Provider: Complete metronidazole course on 01/05 Addendum Notes were documented by provider Becky Renner. Addendum: Baljit Lowrey MD on 01/02/17 @ 12:46 Discharge Inst - Addendum Addendum Provider: Addendum Notes were documented by provider Baljit Lowery. YOUR FOLLOW UP APPOINTMENT WITH DR. PANIAGUA HAS BEEN CHANGED. PLEASE FOLLOW UP WITH DR. PANIAGUA ON WEDNESDAY JANUARY 04, 2017 AT 930AM. THE [facility] COUMADIN CLINIC WILL BE CALLING YOU SOON REGARDING BLOOD WORK WELL COUMADIN AND LOVENOX DOSING.
[2017-01-04 10:28] LABS: PROTEIN C ACTIVITY** TC 1777X 137 % (70-180); PROTEIN S ACT(FUNCT)**1779X 65 % (60-140)
== END 2017-01-02 15:44 | disposition home or self-care (01) | DRG 176 ==
LOC: C.EDB 09:51 → C.2T 12:15 → ENRESERV 12:59
PROVIDERS: ADMIT Hospitalist; ATTEND Internal Medicine
DX: I26.99 Other pulmonary embolism without acute cor pulmonale (principal); I82.431 Acute embolism and thrombosis of right popliteal vein; N39.0 Urinary tract infection, site not specified; A04.7 Enterocolitis due to Clostridium difficile; K91.872 Postprocedural seroma of a digestive system organ or structure following a digestive system procedure; Y83.8 Other surgical procedures as the cause of abnormal reaction of the patient, or of later complication, without mention of misadventure at the time of the procedure; K59.00 Constipation, unspecified; R74.8 Abnormal levels of other serum enzymes; N28.9 Disorder of kidney and ureter, unspecified; K75.81 Nonalcoholic steatohepatitis (NASH); G35 Multiple sclerosis; I10 Essential (primary) hypertension; Z79.891 Long term (current) use of opiate analgesic; Z98.890 Other specified postprocedural states; Z79.899 Other long term (current) drug therapy

== ENCOUNTER 2020-11-26 13:51 | Inpatient (IN) ==
[2020-11-26] MEDS ORDERED: KETOROLAC TROMETHAMINE 15 MG/ML VIAL IV ONE (14:31)
[2020-11-26] MEDS ORDERED: SODIUM CHLORIDE 0.9% 1000ML 1,000 ML IV SCH ×2 (14:45→20:30)
--- NOTE | 2020-11-26 15:12 | CT Scan Report ---
HEAD CT NONCONTRAST CT DOSE: 537.48 mGy.cm HISTORY: fall, weakness TECHNIQUE: Multiaxial CT images of the head were performed without the use of intravenous contrast. A utomated exposure control was utilized for this study. A dose lowering technique was utilized adheri ng to the principles of ALARA. Comparison: None. Findings: The paranasal sinuses and mastoid air cells are clear. The calvarium and skull base are int act. There is no mass, hematoma, midline shift, acute infarct. White matter hypodensity is nonspecifi c but suggestive of microvascular ischemic change. The ventricles and sulci demonstrate mild age-rela marci involutional changes. Impression: No acute intracranial abnormality. Atrophy and microvascular ischemic changes. ACT 112: Negative or not required by law. Electronically signed by: Kin Coffman M.D. 11/26/2020 3:11 PM
[2020-11-26 15:16] LABS: Basophils # (auto) 0.01 K/uL (0-0.2); Basophils % (auto) 0.2 %; Hematocrit (blood only) 37.7 % (37-47); Hemoglobin 12.3 g/dL (12.0-16.0); Immature Granulocytes # (auto) 0.01 K/uL (0.00-0.02); Immature Granulocytes % (auto) 0.2 %; Lymphocytes # (auto) 0.44 K/uL (1.2-3.4); Lymphocytes % (auto) 9.8 %; Mean Corpuscular Hemoglobin 27.2 pg (25-34); Mean Corpuscular Hgb Conc 32.6 g/dL (32-36); Mean Corpuscular Volume 83.2 fL (80-100); Mean Platelet Volume 10.7 fL (7.4-10.4); Monocytes # (auto) 0.09 K/uL (0.11-0.59); Neutrophils # (auto) 3.96 K/uL (1.4-6.5); Neutrophils % (auto) 87.8 %; Platelet Count 158 K/uL (130-400); RDW Coefficient of Variation 15.6 % (11.5-14.5); RDW Standard Deviation 47.7 fL (36.4-46.3); Red Blood Count 4.53 M/uL (4.2-5.4); White Blood Count 4.51 K/uL (4.8-10.8)
[2020-11-26 15:17] LABS: Alanine Aminotransferase 29 U/L (12-78); Aspartate Aminotransferase 31 U/L (15-37); BUN Creatinine Ratio 23.4 (10-20); Blood Urea Nitrogen 17 mg/dl (7-18); C Reactive Protein 4.75 mg/dl (0-0.29); Calcium 8.8 mg/dl (8.5-10.1); Carbon Dioxide 25 mmol/L (21-32); Chloride 106 mmol/L (98-107); Est GFR (African American) 101.9 ml/min; Est GFR (Non-African American) 87.9 ml/min; Glucose 104 mg/dl (70-99); Potassium 3.3 mmol/L (3.5-5.1); Sodium 136 mmol/L (136-145)
[2020-11-26 15:28] LABS: Albumin Globulin Ratio 0.7 (0.9-2); Alkaline Phosphatase 168 U/L (45-117); Bilirubin,Total 0.5 mg/dl (0.2-1); Globulin 4.2 gm/dl (2.5-4.0); Thyroid Stimulating Hormone 0.521 uIu/ml (0.300-4.500); Total Protein 7.2 gm/dl (6.4-8.2); Troponin I < 0.015 ng/ml (0-0.045)
--- NOTE | 2020-11-26 15:32 | XRay Report ---
SINGLE VIEW CHEST CLINICAL HISTORY: Generalized weakness. FINDINGS: An AP, portable, supine chest radiograph is compared to study dated 11/25/2020 and correlated with chest CT dated 12/29/2016. The examination is degraded by portable technique and patient rotation . The heart is mildly enlarged. There is prominence of the pulmonary vasculature. No airspace consoli dation or large pleural effusion is identified. No pneumothorax is seen. The skeletal structures are osteopenic. The bony thorax is grossly intact. IMPRESSION: 1. Cardiomegaly with prominence of the pulmonary vasculature. Correlate clinically for evidence of mi ld congestive change. 2. No airspace consolidation or large pleural effusion is identified. ACT 112: Negative or not required by law. Electronically signed by: Sukh Bush M.D. 11/26/2020 3:30 PM
--- NOTE | 2020-11-26 15:34 | XRay Report ---
XR hip RT 2V w pelvis CLINICAL HISTORY: pain, weakness COMPARISON: CT of the abdomen and pelvis December 29, 2016. FINDINGS: Sacroiliac joints and symphysis pubis are intact. There are pelvic surgical clips. No acut e fracture within the pelvis or hips is identified. There is mild to moderate bilateral hip osteoarth ritis. IMPRESSION: No acute fracture within the pelvis or hips. ACT 112: Negative or not required by law. Electronically signed by: Sachin Cisneros M.D. 11/26/2020 3:32 PM
--- NOTE | 2020-11-26 17:49 | Emergency Department Note ---
Impression & Plan Weakness, Ambulatory dysfunction, Hypokalemia, Myalgia ED Provider Note Provider: Salvador Ortega MD DATE OF SERVICE: 11/26/2020 CHIEF COMPLAINT: Weakness, chills, headache HISTORY OF PRESENT ILLNESS: Patient is a 65-year-old female history of hypertension, Joseph, MS, and distantly PEs no longer on Coumadin at this point presenting with her again for reevaluation today. Was seen here late last night diagnosed with pneumonia. Extensive testing at that time and felt better after some treatment here but then upon getting home significantly fatigue and took quite a while to get into bed. Has been very weak and unable to ambulate today. Evidently had a fall onto her face today. Not been able to eat much for breakfast and they were eventually able to bring her here for further care. Last night there was some concern for pneumonia and again was started on cefdinir and azithromycin but has not been able to go to the pharmacy or get these medications. Patient denies any acute visual changes. Patient denies dizziness but feels again very generally fatigued and has some chills. Took some Tylenol yesterday but no Tylenol or NSAIDs today reported. Patient states occasionally little bit of pain in the right side of her neck. Denies significant sinus congestion. REVIEW OF SYSTEMS: A total of 10 review of systems was obtained and negative except as stated above in the HPI. PAST MEDICAL HISTORY: As noted above MEDICATIONS: Reviewed home medication list SOCIAL HISTORY: Lives at home with PHYSICAL EXAM: GENERAL: alert and oriented in no acute distress on stretcher Head: normocephalic and atraumatic EYES: No injection, discharge or icterus. PERRL, EOMI. NECK: Trachea midline. Supple. ENT: Mucous membranes pink and moist. Pharynx without erythema or exudate. LUNGS: Airway patent. No retractions. Breath sounds clear with good air entry bilaterally. HEART: Regular rate and rhythm. No chest wall tenderness ABDOMEN: Soft and non-tender, without guarding or rebound. No hepatosplenomegaly or masses BACK: No midline tenderness, no SI joint tenderness. No bilateral flank tenderness. SKIN: Acyanotic, warm, dry, without rashes EXTREMITIES: Without swelling, tenderness or deformity NEUROLOGICAL: No focal deficits. No aphasia. No facial droop or slurred speech. Normal strength and tone in the extremities. Sensation to gross touch normal. Ambulatory. EK bpm normal sinus rhythm. No PVC or PAC. No acute ST segment elevation with some nonspecific lateral and inferior T wave inversions with a QTC of 422. Compared to previous from December [id number] similar CONTINUOUS CARDIAC MONITORING: was ordered and showed a heart rate of bpm in inferior with slightly more pronounced lateral changes GCS 15. Patient's laboratory studies and imaging reviewed. Differential includes Infection, dehydration, metabolic abnormality, hypo/hyperglycemia, electrolyte disturbance, anemia, hypoxia, cardiac sources, intracerebral event, toxicologic, neurologic, as well as other pathologies. IMPRESSION/MEDICAL DECISION MAKING: Patient resents with generalized weakness and chills sounds like an infectious etiology. Patient does not appear meningitic. Patient states she has weakness of the lower extremities but no numbness. No back pain. Little bit of pain occasionally in the right groin region but denies any flank pain. States occasionally some right hip issues in the past. Did have a fall flat on her face due to the weakness today. Extensive evaluation last night with negative Lyme, anaplasmosis, and Covid testing. X-ray was question to have a pneumonia and start antibiotics. Patient's blood work last night was reassuring. Repeated blood work and some testing today. CT the head is complete without acute findings. X-ray of the pelvis obtained without significant findings and I doubt acute septic joint here. No significant rash or tenderness of the lower extremities concerning for DVT or vascular occlusion. Patient not having significant saddle anesthesia, numbness in lower extremities, or back pain concerning for spinal infection or significant risk factors for such. Symptoms do not seem that consistent with acute PE or with MS flare. Blood work with some stable leukopenia and some slight hypokalemia but no other severe abnormality besides some slight CRP elevation. Procalcitonin not severely elevated. TSH within normal limits. Discussed after some fluid hydration and Toradol with the patient who is resting comfortably in the bed. She states her headache was feeling bit better and she felt a little more improved but still felt weak. Has been able to ambulate or provide a urine sample today but had a negative urine sample last night. Blood cultures were sent. Given the patient's significant weakness which sounds infectious and very possibly viral discussed with her further care here at the hospital. Again not having severe headache at this time and does not appear meningitic able to move her head well and I doubt an occult infection here requiring an LP. Discussed with the hospitalist service for further care. Hospitalist team ordered some potassium supplementation. Will defer to them any antimicrobial selection at this time. DIAGNOSIS: Weakness, ambulatory dysfunction, hypokalemia DISPOSITION: Hospitalist will evaluate Patient was agreeable with this plan. Past Med/Surg History Medical History (Updated 11/26/20 @ 19:59 by Sharda Ignacio PA-C) Bilateral pulmonary embolism Edema, lower extremity HLD (hyperlipidemia) HTN (hypertension) Multiple sclerosis Nonalcoholic steatohepatitis (JOSEPH) Obesity Surgical History (Updated 11/26/20 @ 19:53 by Sharda Ignacio PA-C) S/P appendectomy S/P repair of ventral hernia S/P TERESSA-BSO Family History (Updated 11/26/20 @ 19:55 by Sharda Ignacio PA-C) Mother Coronary heart disease Stroke Social History (Updated 11/26/20 @ 19:55 by Sharda Ignacio PA-C) Smoking Status: Never smoker Hx Alcohol Use: Yes Alcohol Intake Frequency Comment: twice a year Hx Substance Use: No Feels Safe at Home: Yes Allergies Allergies Allergy/AdvReac Type Severity Reaction Status Date / Time adhesive Allergy Unknown BANDAIDES, Verified 11/26/20 00:34 RASH, EXCORIATION Penicillins Allergy Unknown RASH, HIVES Unverified 11/26/20 00:34 rosuvastatin Allergy Unknown LIVER Unverified 11/26/20 00:34 FAILURE Home Meds Home Medications Medication Instructions Recorded Confirmed albuterol sulfate [ProAir HFA] 2 puff INHALATION Q4H PRN 11/26/20 11/26/20 ascorbic acid (vitamin C) [Vitamin 1 g PO DAILY 11/26/20 11/26/20 C] atorvastatin 20 mg PO DAILY 11/26/20 11/26/20 biotin 1 mg PO 3XWK 11/26/20 11/26/20 cholecalciferol (vitamin D3) 25 mcg PO DAILY 11/26/20 11/26/20 docusate sodium 100 mg PO DAILY 11/26/20 11/26/20 furosemide 20 mg PO DAILY 11/26/20 11/26/20 interferon beta-1b [Betaseron] 0.3 mg SUBCUT Q2D 11/26/20 11/26/20 omega-3 fatty acids-fish oil 2 cap PO DAILY 11/26/20 11/26/20 [Lutz 3 Fish Oil] potassium chloride 10 meq PO BID 11/26/20 11/26/20 sennosides [Senokot] 8.6 mg PO DAILY 11/26/20 11/26/20 Previous Rx's Medication Instructions Recorded azithromycin See Rx Instructions .ROUTE 11/26/20 .COMPLEX #6 tab cefdinir 300 mg PO BID 10 Days #20 cap 11/26/20 Results & Data (ED) Vital Signs Vital Signs - 24 hr 11/26/20 14:02 11/26/20 14:50 11/26/20 14:53 Temperature 37.3 C Temperature Source Temporal Artery Scan Pulse Rate 93 H 90 90 Pulse Rate from SpO2 Sensor 91 H 91 H Respiratory Rate 18 30 H 30 H Blood Pressure 138/68 144/78 H Blood Pressure Mean 91 100 Pulse Oximetry 96 96 96 Oxygen Delivery Method Room Air Sepsis Recent Fever Within 48 Hours Yes Sepsis New/Unexplained Change in Mental Status No Sepsis Action Taken by Nursing No Action Required 11/26/20 14:55 11/26/20 14:56 11/26/20 15:10 Temperature Temperature Source Pulse Rate 94 H Pulse Rate from SpO2 Sensor 94 H Respiratory Rate 32 H Blood Pressure Blood Pressure Mean Pulse Oximetry 95 96 Oxygen Delivery Method Room Air Room Air Sepsis Recent Fever Within 48 Hours Sepsis New/Unexplained Change in Mental Status Sepsis Action Taken by Nursing 11/26/20 15:30 11/26/20 15:41 11/26/20 15:42 Temperature Temperature Source Pulse Rate 89 87 86 Pulse Rate from SpO2 Sensor 89 87 87 Respiratory Rate 28 H 26 H 19 Blood Pressure Blood Pressure Mean 198 Pulse Oximetry 94 95 95 Oxygen Delivery Method Sepsis Recent Fever Within 48 Hours Sepsis New/Unexplained Change in Mental Status Sepsis Action Taken by Nursing 11/26/20 15:43 11/26/20 16:00 11/26/20 16:01 Temperature Temperature Source Pulse Rate 88 84 84 Pulse Rate from SpO2 Sensor 88 84 84 Respiratory Rate 25 H 25 H 22 Blood Pressure 124/69 134/60 Blood Pressure Mean 87 84 Pulse Oximetry 97 97 95 Oxygen Delivery Method Sepsis Recent Fever Within 48 Hours Sepsis New/Unexplained Change in Mental Status Sepsis Action Taken by Nursing 11/26/20 16:30 11/26/20 17:00 11/26/20 17:30 Temperature Temperature Source Pulse Rate 81 79 78 Pulse Rate from SpO2 Sensor 81 80 78 Respiratory Rate 22 24 24 Blood Pressure 118/57 L 133/59 L 128/59 L Blood Pressure Mean 77 83 82 Pulse Oximetry 97 97 97 Oxygen Delivery Method Sepsis Recent Fever Within 48 Hours Sepsis New/Unexplained Change in Mental Status Sepsis Action Taken by Nursing Laboratory Data Result diagrams: 11/26/20 14:45 11/26/20 14:45 Lab Results 11/26/20 11/26/20 11/26/20 Range/Units 14:45 14:45 14:45 WBC 4.51 L (4.8-10.8) K/uL RBC 4.53 (4.2-5.4) M/uL Hgb 12.3 (12.0-16.0) g/dL Hct 37.7 (37-47) % MCV 83.2 (80-100) fL MCH 27.2 (25-34) pg MCHC 32.6 (32-36) g/dL RDW Std Deviation 47.7 H (36.4-46.3) fL RDW Coeff of [place] 15.6 H (11.5-14.5) % Plt Count 158 (130-400) K/uL MPV 10.7 H (7.4-10.4) fL Immature Gran % (Auto) 0.2 % Neut % (Auto) 87.8 % Lymph % (Auto) 9.8 % [place] % (Auto) 2.0 % Eos % (Auto) 0.0 % Baso % (Auto) 0.2 % Neut # (Auto) 3.96 (1.4-6.5) K/uL Lymph # (Auto) 0.44 L (1.2-3.4) K/uL [place] # (Auto) 0.09 L (0.11-0.59) K/uL Eos # (Auto) 0.00 (0-0.5) K/uL Baso # (Auto) 0.01 (0-0.2) K/uL Immature Gran # (Auto) 0.01 (0.00-0.02) K/uL Sodium 136 (136-145) mmol/L Potassium 3.3 L (3.5-5.1) mmol/L Chloride 106 (98-107) mmol/L Carbon Dioxide 25 (21-32) mmol/L Anion Gap 6.0 (3-11) BUN 17 (7-18) mg/dl Creatinine 0.72 (0.6-1.2) mg/dl Est Cr Clr Drug Dosing Not Reportable Est GFR ( Amer) 101.9 ml/min Est GFR (Non-Af Amer) 87.9 ml/min BUN/Creatinine Ratio 23.4 H (10-20) Glucose 104 H (70-99) mg/dl Lactate 1.0 (0.4-2.0) mmol/L Calcium 8.8 (8.5-10.1) mg/dl Magnesium 2.0 (1.8-2.4) mg/dl Total Bilirubin 0.5 (0.2-1) mg/dl AST 31 (15-37) U/L ALT 29 (12-78) U/L Alkaline Phosphatase 168 H (45-117) U/L Troponin I < 0.015 (0-0.045) ng/ml C-Reactive Protein 4.75 H (0-0.29) mg/dl Total Protein 7.2 (6.4-8.2) gm/dl Albumin 3.0 L (3.4-5.0) gm/dl Globulin 4.2 H (2.5-4.0) gm/dl Albumin/Globulin Ratio 0.7 L (0.9-2) Procalcitonin (0-0.5) ng/ml TSH 0.521 (0.300-4.500) uIu/ml COVID-19 Eval Order SARS-CoV-2 (PCR) (Negative) 11/26/20 11/26/20 11/26/20 Range/Units 14:45 17:23 17:23 WBC (4.8-10.8) K/uL RBC (4.2-5.4) M/uL Hgb (12.0-16.0) g/dL Hct (37-47) % MCV (80-100) fL MCH (25-34) pg MCHC (32-36) g/dL RDW Std Deviation (36.4-46.3) fL RDW Coeff of [place] (11.5-14.5) % Plt Count (130-400) K/uL MPV (7.4-10.4) fL Immature Gran % (Auto) % Neut % (Auto) % Lymph % (Auto) % [place] % (Auto) % Eos % (Auto) % Baso % (Auto) % Neut # (Auto) (1.4-6.5) K/uL Lymph # (Auto) (1.2-3.4) K/uL [place] # (Auto) (0.11-0.59) K/uL Eos # (Auto) (0-0.5) K/uL Baso # (Auto) (0-0.2) K/uL Immature Gran # (Auto) (0.00-0.02) K/uL Sodium (136-145) mmol/L Potassium (3.5-5.1) mmol/L Chloride (98-107) mmol/L Carbon Dioxide (21-32) mmol/L Anion Gap (3-11) BUN (7-18) mg/dl Creatinine (0.6-1.2) mg/dl Est Cr Clr Drug Dosing Est GFR ( Amer) ml/min Est GFR (Non-Af Amer) ml/min BUN/Creatinine Ratio (10-20) Glucose (70-99) mg/dl Lactate (0.4-2.0) mmol/L Calcium (8.5-10.1) mg/dl Magnesium (1.8-2.4) mg/dl Total Bilirubin (0.2-1) mg/dl AST (15-37) U/L ALT (12-78) U/L Alkaline Phosphatase (45-117) U/L Troponin I (0-0.045) ng/ml C-Reactive Protein (0-0.29) mg/dl Total Protein (6.4-8.2) gm/dl Albumin (3.4-5.0) gm/dl Globulin (2.5-4.0) gm/dl Albumin/Globulin Ratio (0.9-2) Procalcitonin 0.09 (0-0.5) ng/ml TSH (0.300-4.500) uIu/ml COVID-19 Eval Order Covid19 at [facility] SARS-CoV-2 (PCR) NEGATIVE (Negative) Administered Medications Doxycycline Hyclate 100 mg/ (Dextrose) 110 mls @ 50 mls/hr IV NOW STA Stop: 11/26/20 20:53 Last Admin: 11/26/20 19:23 Dose: 50 mls/hr Documented by: [id number] Discontinued Medications Sodium Chloride (Nss 1000ml) 1,000 mls @ 999 mls/hr IV .Q1H1M CHULA Stop: 11/26/20 15:45 Last Infusion: 11/26/20 16:02 Dose: 0 mls/hr Documented by: [id number] Admin: 11/26/20 14:53 Dose: 999 mls/hr Documented by: [id number] Ketorolac Tromethamine (Ketorolac Tromethamine 15 Mg/Ml Vial) 10 mg IV NOW ONE Stop: 11/26/20 14:32 Last Admin: 11/26/20 14:53 Dose: 10 mg Documented by: [id number] Potassium Chloride (Potassium Chloride Crtab 20 Meq Tabcr) 40 meq PO NOW STA Stop: 11/26/20 18:07 Last Admin: 11/26/20 19:23 Dose: 40 meq Documented by: [id number] Imaging Data Radiologist's Impression: Chest X-Ray 11/26/20 14:31 SINGLE VIEW CHEST CLINICAL HISTORY: Generalized weakness. FINDINGS: An AP, portable, supine chest radiograph is compared to study dated 11/25/2020 and correlated with chest CT dated 12/29/2016. The examination is degraded by portable technique and patient rotation. The heart is mildly enlarged. There is prominence of the pulmonary vasculature. No airspace consolidation or large pleural effusion is identified. No pneumothorax is seen. The skeletal structures are osteopenic. The bony thorax is grossly intact. IMPRESSION: 1. Cardiomegaly with prominence of the pulmonary vasculature. Correlate clinically for evidence of mild congestive change. 2. No airspace consolidation or large pleural effusion is identified. ACT 112: Negative or not required by law. Electronically signed by: Sukh Bush M.D. 11/26/2020 3:[address] 11/26/20 14:[address] DOSE: 537.48 mGy.cm HISTORY: fall, weakness TECHNIQUE: Multiaxial CT images of the head were performed without the use of intravenous contrast. Automated exposure control was utilized for this study. A dose lowering technique was utilized adhering to the principles of ALARA. Comparison: None. Findings: The paranasal sinuses and mastoid air cells are clear. The calvarium and skull base are intact. There is no mass, hematoma, midline shift, acute infarct. White matter hypodensity is nonspecific but suggestive of microvascular ischemic change. The ventricles and sulci demonstrate mild age-related involutional changes. Impression: No acute intracranial abnormality. Atrophy and microvascular ischemic changes. ACT 112: Negative or not required by law. Electronically signed by: Kin Coffman M.D. 11/26/2020 3:11 PM Hip/Pelvis X-Ray 11/26/20 14:32 XR hip RT 2V w pelvis CLINICAL HISTORY: pain, weakness COMPARISON: CT of the abdomen and pelvis December 29, 2016. FINDINGS: Sacroiliac joints and symphysis pubis are intact. There are pelvic surgical clips. No acute fracture within the pelvis or hips is identified. There is mild to moderate bilateral hip osteoarthritis. IMPRESSION: No acute fracture within the pelvis or hips. ACT 112: Negative or not required by law. Electronically signed by: Sachin Cisneros M.D. 11/26/2020 3:32 PM Discharge Plan Visit Data Chief Complaint: Weakness Stated Complaint: IN LAST NIGHT STILL CANT STAND NOT GETTING BETTER ED Provider: Salvador Ortega Discharge Problem: Weakness, Ambulatory dysfunction, Hypokalemia, Myalgia Patient Disposition: Being Evaluated by Hospitalist Discharge Instructions Interventions: ED Discharge Assessment Last Done: 11/26/20 20:06
[2020-11-26] MEDS ORDERED: POTASSIUM CHLORIDE CRTAB 20 MEQ TABCR PO STA (18:06)
--- NOTE | 2020-11-26 18:06 | History & Physical Report ---
Date of Service November 26, 2020 Assessment & Plan (1) Fever: Possible Tick Borne Illness Pt is 65 y/o F with PMH MS, HTN, HLD, lower extremity edema, obesity presented to ER with complaint of fever/chills and weakness x3 days. Max recorded temp of 100.9 F. Tick bite 1 week ago. Denies N/V/D. Yesterday in ER negative Lyme IgG AB, IgM AB, negative Anaplasma smear, negative Covid 19 PCR and UA. CXR with prominent markings right medial lung. Patient prescribed cefdinir and azithromycin for possible pneumonia, did not start yet. Today in ER patient afebrile, P: 93, R: 18, BP: 138/68, 96% on room air. WBC: 4.5, H/H 12/37, PLT: 158, lactate: 1.0., Procalcitonin: 0.09. Negative COVID-1 9 PCR. CXR: No consolidation In ER given 1 mL NSS, Toradol -Blood cultures pending -Anaplasmosis PCR, babesiosis smear pending -Doxycycline 100 mg twice daily -CBC, BMP in a.m. (2) Weakness: (3) Ambulatory dysfunction: CT head: No acute intracranial findings Likely secondary to underlying illness. -If no improvement with above treatment consider MS flare, neuro consult -PT/OT eval (4) Hypokalemia: K: 3.3 -Replace and monitor (5) Multiple sclerosis: -Continue Betaseron (6) Edema, lower extremity: History of chronic BLE edema -Hold Lasix tomorrow and reassess (7) HLD (hyperlipidemia): -Continue atorvastatin DVT Prophylaxis -Lovenox SQ Full Code as per discussion with pt Follows with Dr Menjivar for routine care Pt was seen and care coordinated with Dr Wagner. See addendum History of Present Illness Chief Complaint: Fever, weakness Primary Care Provider: Ariel Menjivar, Pt is 65 y/o F with PMH MS, HTN, HLD, lower extremity edema, obesity presented to ER with complaint of fever and weakness x3 days. Patient reports maximum temperature of 100.9 F yesterday. She reports chills, diffuse weakness of bilateral lower extremities, fatigue, myalgias. Had frontal headache yesterday which has resolved. Today increased difficulty ambulating and had a fall secondary to leg weakness. Uses cane at baseline. Denies hitting head or LOC. Patient reports had tick bite 1 week ago to left upper arm. Reports tick was not engorged and was able to fully remove. Denies noticing any rashes. Denies ill contacts. Denies recent travel. Reports had 2 doses Pfizer COVID-19 vaccination last dose was in beginning of August 2020. Denies cough, nausea, vomiting, diarrhea, dizziness, syncope, vision changes, neck pain, CP, SOB, orthopnea, palpitations, cough, sore throat, choking, otalgia, rhinorrhea, abdominal pain, paresthesias, increased extremity edema, rashes, urinary symptoms. Was seen at [facility] ER 11/25/2020 and had WBC: 4.2, negative Lyme IgG AB, IgM AB, negative Anaplasma smear, negative Covid 19 PCR. Chest x-ray with prominent markings right medial lung. Patient prescribed cefdinir and azithromycin for possible pneumonia, however patient did not get prescriptions filled yet. Allergies Allergy/AdvReac Type Severity Reaction Status Date / Time adhesive Allergy Unknown BANDAIDES, Verified 11/26/20 00:34 RASH, EXCORIATION Penicillins Allergy Unknown RASH, HIVES Unverified 11/26/20 00:34 rosuvastatin Allergy Unknown LIVER Unverified 11/26/20 00:34 FAILURE Home Medications Medication Instructions Recorded Confirmed Type albuterol sulfate [ProAir HFA] 2 puff INHALATION Q4H PRN 11/26/20 11/26/20 History ascorbic acid (vitamin C) [Vitamin 1 g PO DAILY 11/26/20 11/26/20 History C] atorvastatin 20 mg PO DAILY 11/26/20 11/26/20 History azithromycin See Rx Instructions .ROUTE 11/26/20 11/26/20 Rx .COMPLEX #6 tab biotin 1 mg PO 3XWK 11/26/20 11/26/20 History cefdinir 300 mg PO BID 10 Days #20 cap 11/26/20 11/26/20 Rx cholecalciferol (vitamin D3) 25 mcg PO DAILY 11/26/20 11/26/20 History docusate sodium 100 mg PO DAILY 11/26/20 11/26/20 History furosemide 20 mg PO DAILY 11/26/20 11/26/20 History interferon beta-1b [Betaseron] 0.3 mg SUBCUT Q2D 11/26/20 11/26/20 History omega-3 fatty acids-fish oil 2 cap PO DAILY 11/26/20 11/26/20 History [[place] 3 Fish Oil] potassium chloride 10 meq PO BID 11/26/20 11/26/20 History sennosides [Senokot] 8.6 mg PO DAILY 11/26/20 11/26/20 History Past Med/Surg History Medical History (Updated 11/26/20 @ 19:59 by Sharda Ignacio PA-C) Bilateral pulmonary embolism Edema, lower extremity HLD (hyperlipidemia) HTN (hypertension) Multiple sclerosis Nonalcoholic steatohepatitis (TOTH) Obesity Surgical History (Updated 11/26/20 @ 19:53 by Sharda Ignacio PA-C) S/P appendectomy S/P repair of ventral hernia S/P TERESSA-BSO Family History (Updated 11/26/20 @ 19:55 by Sharda Ignacio PA-C) Mother Coronary heart disease Stroke Social History (Updated 11/26/20 @ 19:55 by Sharda Ignacio PA-C) Smoking Status: Never smoker Hx Alcohol Use: Yes Alcohol Intake Frequency Comment: twice a year Hx Substance Use: No Feels Safe at Home: Yes Review of Systems Review of Systems: All systems reviewed & are unremarkable except as noted in HPI & below Physical Exam Physical Exam: General: no distress, WDWN Head: normocephalic, atraumatic Eyes: PERRL, EOM's intact, conjunctiva non-injected, anicteric ENT: normal inspection external ears, nose, mucous membranes mildly dry Neck: supple, trachea midline Lungs: clear, no respiratory distress, no wheezing/rhonchi/rales CV: RRR, trace pretibial edema Abd: normal BS, soft, non-tender Ext: no cyanosis, no calf tenderness Neuro: A&O x 3, bilateral leg weakness, otherwise no focal deficits noted, normal affect Skin: warm, dry; left upper arm with approx 4 mm area of erythema at site of tick bite without red streaking or erythema migrans Results & Data Results & Data ([facility]) Vital Signs (Past 12 Hours) Vital Signs Temp Pulse Resp BP Pulse Ox 11/26/20 17:00 79 24 133/59 L 97 11/26/20 16:30 81 22 118/57 L 97 11/26/20 16:01 84 22 95 11/26/20 16:00 84 25 H 134/60 97 11/26/20 15:43 88 25 H 124/69 97 11/26/20 15:42 86 19 95 11/26/20 15:41 87 26 H 95 11/26/20 15:30 89 28 H 94 11/26/20 15:10 94 H 32 H 96 11/26/20 14:56 95 11/26/20 14:53 90 30 H 96 11/26/20 14:50 90 30 H 144/78 H 96 11/26/20 14:02 37.3 C 93 H 18 138/68 96 Laboratory Results Short CBC 11/26/20 Range/Units 14:45 WBC 4.51 L (4.8-10.8) K/uL Hgb 12.3 (12.0-16.0) g/dL Hct 37.7 (37-47) % Plt Count 158 (130-400) K/uL BMP 11/26/20 14:45 Sodium 136 Potassium 3.3 L Chloride 106 Carbon Dioxide 25 BUN 17 Creatinine 0.72 Glucose 104 H Calcium 8.8 Cardiac Enzymes 11/26/20 Range/Units 14:45 Troponin I < 0.015 (0-0.045) ng/ml Liver Function 11/26/20 Range/Units 14:45 Total Bilirubin 0.5 (0.2-1) mg/dl AST 31 (15-37) U/L ALT 29 (12-78) U/L Alkaline Phosphatase 168 H (45-117) U/L Albumin 3.0 L (3.4-5.0) gm/dl Diagnostic Findings Chest X-Ray 11/26/20 14:31 SINGLE VIEW CHEST CLINICAL HISTORY: Generalized weakness. FINDINGS: An AP, portable, supine chest radiograph is compared to study dated 11/25/2020 and correlated with chest CT dated 12/29/2016. The examination is degraded by portable technique and patient rotation. The heart is mildly enlarged. There is prominence of the pulmonary vasculature. No airspace consolidation or large pleural effusion is identified. No pneumothorax is seen. The skeletal structures are osteopenic. The bony thorax is grossly intact. IMPRESSION: 1. Cardiomegaly with prominence of the pulmonary vasculature. Correlate clinically for evidence of mild congestive change. 2. No airspace consolidation or large pleural effusion is identified. ACT 112: Negative or not required by law. Electronically signed by: Sukh Bush M.D. 11/26/2020 3:[address] 11/26/20 14:[address] DOSE: 537.48 mGy.cm HISTORY: fall, weakness TECHNIQUE: Multiaxial CT images of the head were performed without the use of intravenous contrast. Automated exposure control was utilized for this study. A dose lowering technique was utilized adhering to the principles of ALARA. Comparison: None. Findings: The paranasal sinuses and mastoid air cells are clear. The calvarium and skull base are intact. There is no mass, hematoma, midline shift, acute infarct. White matter hypodensity is nonspecific but suggestive of microvascular ischemic change. The ventricles and sulci demonstrate mild age-related involutional changes. Impression: No acute intracranial abnormality. Atrophy and microvascular ischemic changes. ACT 112: Negative or not required by law. Electronically signed by: Kin Coffman M.D. 11/26/2020 3:11 PM Hip/Pelvis X-Ray 11/26/20 14:32 XR hip RT 2V w pelvis CLINICAL HISTORY: pain, weakness COMPARISON: CT of the abdomen and pelvis December 29, 2016. FINDINGS: Sacroiliac joints and symphysis pubis are intact. There are pelvic surgical clips. No acute fracture within the pelvis or hips is identified. There is mild to moderate bilateral hip osteoarthritis. IMPRESSION: No acute fracture within the pelvis or hips. ACT 112: Negative or not required by law. Electronically signed by: Sachin Cisneros M.D. 11/26/2020 3:32 PM Code Status & VTE Plan VTE Prophylaxis Plan VTE Prophylaxis will be ordered: Yes Supervising Physician Co-Signing Physician Notes Care coordinated with Sharda Ignacio PA-C. Agree with above note. Patient seen and examined. Please refer to her notes for full details. Vital signs reviewed. Physical exam: General exam: Alert and oriented. Not in acute distress. CVS: S1 and S2 heard, regular rate and rhythm, no murmurs. RS: Clear to auscultation, no wheezing or crackles. ABD: Soft, bowel sounds present, nontender, no distention. [employer]: Nonfocal. EXT: No edema, no erythema. Labs: Reviewed. Assessment and plan: 65F with hx of MS, HTN,IBS, presents with weakness, episode of fever yesterday, had a tick bit last week . TIck was not engorged. Was in ER yesterday lyme screen anaplasmosis screen negative . Sent home on azithromycin and omnicef for possible pneumonia. But comes because of ongoing weakness and not feeling well. Possible tick borne illness will start on doxycyline and monitor response Hx of MS doesnt seem to be in flare if any concern will consult neurology Other diagnosis and plan of care as per Sharda Ignacio PA-C. Tom jc MD.
[2020-11-26] MEDS ORDERED: DOXYCYCLINE HYCLATE 100 MG in DEXTROSE 5% 100 ML IV STA (18:42)
[2020-11-26] MEDS ORDERED: POLYETHYLENE (MIRALAX) 17 GM PACK PO PRN (19:48)
[2020-11-26] MEDS ORDERED: ALBUTEROL HFA 8 GM INHALER INH PRN (20:14)
[2020-11-26] MEDS: ENOXAPARIN INJ 40 MG/0.4 ML SYR SQ SCH (21:39)
[2020-11-26] MEDS: POTASSIUM CHLORIDE 10 MEQ TABCR PO SCH (21:39)
[2020-11-26] MEDS: ACETAMINOPHEN 325 MG TAB PO PRN (23:09)
[2020-11-27 06:17] LABS: Hematocrit (blood only) 35.8 % (37-47); Hemoglobin 11.5 g/dL (12.0-16.0); Mean Corpuscular Hemoglobin 26.4 pg (25-34); Mean Corpuscular Hgb Conc 32.1 g/dL (32-36); Mean Corpuscular Volume 82.3 fL (80-100); Mean Platelet Volume 11.2 fL (7.4-10.4); Platelet Count 127 K/uL (130-400); RDW Coefficient of Variation 15.9 % (11.5-14.5); RDW Standard Deviation 47.9 fL (36.4-46.3); Red Blood Count 4.35 M/uL (4.2-5.4); White Blood Count 4.15 K/uL (4.8-10.8)
[2020-11-27 06:54] LABS: BUN Creatinine Ratio 23.4 (10-20); Calcium 8.2 mg/dl (8.5-10.1); Creatinine Clr Calc Pharmacy 88.8 ml/min; Est GFR (African American) 106.9 ml/min; Est GFR (Non-African American) 92.2 ml/min; Magnesium 1.9 mg/dl (1.8-2.4); Potassium 3.4 mmol/L (3.5-5.1)
[2020-11-27] MEDS: DOXYCYCLINE HYCLATE 100 MG in DEXTROSE 5% 100 ML IV SCH ×2 (07:59→19:41)
[2020-11-27] MEDS: CHOLECALCIFEROL 1,000 UNITS 25 MCG TAB PO SCH (07:59)
[2020-11-27] MEDS: POTASSIUM CHLORIDE 10 MEQ TABCR PO SCH ×2 (07:59→19:43)
[2020-11-27] MEDS: ATORVASTATIN 20 MG TAB PO SCH (07:59)
[2020-11-27] MEDS: DOCUSATE SODIUM 100 MG CAP PO SCH (07:59)
[2020-11-27] MEDS: SENNA 8.6 MG TAB PO SCH (07:59)
[2020-11-27] MEDS ORDERED: POTASSIUM CHLORIDE CRTAB 20 MEQ TABCR PO ONE (08:31)
[2020-11-27 10:13] LABS: Appearance Urine Cloudy (Clear); Bacteria Urine Automated Negative (Negative); Bilirubin Urine Negative (Negative); Blood Urine Negative (Negative); Color Urine Dark Yellow; Epithelial Cell Urine Auto >30 /lpf (0-5); Glucose Urine UA Negative (Negative); Ketones Urine 1+ (Negative); Leukocyte Esterase Urine Negative (Negative); Nitrite Urine Negative (Negative); Protein Urine 1+ (Negative); Specific Gravity Urine 1.029 (1.000-1.030); Urobilinogen Urine Negative (Negative); pH Urine 5.5 (4.5-7.5)
[2020-11-27 10:25] LABS: Mucus Urine Present (None Prsent)
[2020-11-27 10:26] LABS: Cast Urine Automated 0 /lpf (0-5)
--- NOTE | 2020-11-27 15:36 | Hospitalist Progress Note ---
Date of Service November 27, 2020 Assessment & Plan (1) Fever: Pt is 65 y/o F with PMH MS, HTN, HLD, lower extremity edema, obesity presented to ER with complaint of fever/chills and weakness x3 days. Max recorded temp of 100.9 F. Tick bite 1 week ago. Possible Tick Borne Illness Generalized weakness Ambulatory dysfunction H/O Tick Bite Negative COVID-19 PCR. CXR: No consolidation Negative Lyme screen Anaplasmosis PCR pending Blood cultures negative to date Received IV fluid Continue doxycycline Clinically improving Thrombocytopenia Likely secondary to active disease Monitor platelets No bleeding issues (2) Weakness: (3) Ambulatory dysfunction: CT head: No acute intracranial findings Likely secondary to underlying illness. Improving Continue PT/OT (4) Hypokalemia: Hypokalemia Replace electrolytes as needed (5) Multiple sclerosis: Continue Betaseron (6) Edema, lower extremity: History of chronic BLE edema Resume Lasix tomorrow (7) HLD (hyperlipidemia): Continue atorvastatin DVT Px -Lovenox SQ Code Status Full Code Admission and Anticipated Discharge Date Admission Date: November 26, 2020 Subjective Patient is seen and examined in bedside States feeling a lot better today Generalized weakness improved Denies chest pain, shortness of breath, dizziness, nausea, abdominal pain Offers no other complaints Evaluated by physical therapy earlier today Review of Systems Review of Systems: All systems reviewed & are unremarkable except as noted in HPI & below Physical Exam Physical Exam: Physical Exam: Vitals signs as noted above General Appearance:Morbidly Obese, no apparent distress Head: normocephalic, Atraumatic Eyes: normal inspection, EOMI Neck: supple, Trachea midline Respiratory/Chest: Normal breath sounds, CTA, No accessory muscle use Cardiovascular: S1, S2, No murmur Abdomen/GI:Soft, Non tender, Bowel sounds present Extremities/Musculoskeletal:normal inspection, B/L LE edema Neurologic/Psych:AAOX3, grossly no focal neurological deficits Skin: normal color, warm Results & Data Results & Data ([facility]) Vital Signs (Past 12 Hours) Vital Signs Temp Pulse Pulse Resp BP Pulse Ox 11/27/20 11:23 37.4 C 78 20 122/73 93 11/27/20 07:41 37.4 C 90 20 146/72 H 93 11/27/20 07:30 84 11/27/20 05:31 84 11/27/20 05:30 93 H Laboratory Results Short CBC 11/27/20 Range/Units 05:42 WBC 4.15 L (4.8-10.8) K/uL Hgb 11.5 L (12.0-16.0) g/dL Hct 35.8 L (37-47) % Plt Count 127 L (130-400) K/uL BMP 11/27/20 05:42 Sodium 137 Potassium 3.4 L Chloride 109 H Carbon Dioxide 23 BUN 16 Creatinine 0.67 Glucose 90 Calcium 8.2 L Urine 11/27/20 Range/Units Unknown Urine Color Dark Yellow Urine Appearance Cloudy A (Clear) Urine pH 5.5 (4.5-7.5) Ur Specific [place] 1.029 (1.000-1.030) Urine Protein 1+ H (Negative) Urine Glucose (UA) Negative (Negative)
[2020-11-27] MEDS: ACETAMINOPHEN 325 MG TAB PO PRN (19:42)
[2020-11-27] MEDS: ENOXAPARIN INJ 40 MG/0.4 ML SYR SQ SCH (19:44)
--- NOTE | 2020-11-28 06:16 | Electrocardiogram Report ---
Test Reason : Blood Pressure : / mmHG Vent. Rate : 092 BPM Atrial Rate : 092 BPM P-R Int : 162 ms QRS Dur : 094 ms QT Int : 342 ms P-R-T Axes : 055 028 010 degrees QTc Int : 422 ms Normal sinus rhythm Nonspecific ST and T wave abnormality Abnormal ECG When compared with ECG of 29-DEC-2016 10:05, Nonspecific T wave abnormality now evident in Anterolateral leads Confirmed by Blayne Bennett ([id number]) on 11/28/2020 6:16:09 AM Referred By: REFERRED SELF Confirmed By:Blayne Bennett
[2020-11-28 07:23] LABS: Hematocrit (blood only) 35.8 % (37-47); Hemoglobin 11.5 g/dL (12.0-16.0); Mean Corpuscular Hemoglobin 26.6 pg (25-34); Mean Corpuscular Hgb Conc 32.1 g/dL (32-36); Mean Corpuscular Volume 82.9 fL (80-100); Mean Platelet Volume 11.3 fL (7.4-10.4); Platelet Count 112 K/uL (130-400); RDW Coefficient of Variation 15.7 % (11.5-14.5); RDW Standard Deviation 48.4 fL (36.4-46.3); Red Blood Count 4.32 M/uL (4.2-5.4); White Blood Count 4.42 K/uL (4.8-10.8)
[2020-11-28 08:01] LABS: BUN Creatinine Ratio 22.1 (10-20); Calcium 8.8 mg/dl (8.5-10.1); Creatinine Clr Calc Pharmacy 106.1 ml/min; Est GFR (African American) 113.4 ml/min; Est GFR (Non-African American) 97.8 ml/min; Potassium 3.8 mmol/L (3.5-5.1)
[2020-11-28] MEDS: SENNA 8.6 MG TAB PO SCH (08:37)
[2020-11-28] MEDS: ATORVASTATIN 20 MG TAB PO SCH (08:37)
[2020-11-28] MEDS: DOCUSATE SODIUM 100 MG CAP PO SCH (08:37)
[2020-11-28] MEDS: POTASSIUM CHLORIDE 10 MEQ TABCR PO SCH ×2 (08:37→20:15)
[2020-11-28] MEDS: CHOLECALCIFEROL 1,000 UNITS 25 MCG TAB PO SCH (08:37)
[2020-11-28] MEDS: DOXYCYCLINE HYCLATE 100 MG in DEXTROSE 5% 100 ML IV SCH ×2 (08:37→21:20)
[2020-11-28] MEDS: FUROSEMIDE 20 MG TAB PO SCH (08:37)
--- NOTE | 2020-11-28 19:15 | Hospitalist Progress Note ---
Date of Service November 28, 2020 Assessment & Plan (1) Fever: Pt is 65 y/o F with PMH MS, HTN, HLD, lower extremity edema, obesity presented to ER with complaint of fever/chills and weakness x3 days. Max recorded temp of 100.9 F. Tick bite 1 week ago. Possible Tick Borne Illness Generalized weakness Ambulatory dysfunction H/O Tick Bite Negative COVID-19 PCR. CXR: No consolidation Negative Lyme screen Anaplasmosis PCR pending Blood cultures negative to date Received IV fluid Continue doxycycline Day #2 Still has significant generalized weakness Thrombocytopenia Likely secondary to above Monitor platelets No bleeding issues (2) Weakness: (3) Ambulatory dysfunction: CT head: No acute intracranial findings Likely secondary to underlying illness. Improving Continue PT/OT (4) Hypokalemia: Hypokalemia Replace electrolytes as needed Resolved (5) Multiple sclerosis: Continue Betaseron (6) Edema, lower extremity: History of chronic BLE edema Continue lasix (7) HLD (hyperlipidemia): Continue atorvastatin DVT Px Lovenox SQ--May need to DC if platelet count continues to drop Code Status Full Code Admission and Anticipated Discharge Date Admission Date: November 26, 2020 Subjective Patient is seen and examined in bedside States having generalized weakness and tiredness No other complaints Denies chest pain, shortness of breath, dizziness, nausea, abdominal pain Review of Systems Review of Systems: All systems reviewed & are unremarkable except as noted in HPI & below Physical Exam Physical Exam: Physical Exam: Vitals signs as noted above General Appearance:Morbidly Obese, no apparent distress Head: normocephalic, Atraumatic Eyes: normal inspection, EOMI Neck: supple, Trachea midline Respiratory/Chest: Normal breath sounds, CTA, No accessory muscle use Cardiovascular: S1, S2, No murmur Abdomen/GI:Soft, Non tender, Bowel sounds present Extremities/Musculoskeletal:normal inspection, B/L LE edema Neurologic/Psych:AAOX3, grossly no focal neurological deficits Skin: normal color, warm Results & Data Results & Data ([facility]) Vital Signs (Past 12 Hours) Vital Signs Temp Pulse Pulse Resp BP Pulse Ox 11/28/20 15:11 73 11/28/20 14:55 37.0 C 74 20 120/75 97 11/28/20 12:04 36.8 C 76 20 122/72 96 11/28/20 08:19 36.8 C 86 20 144/75 H 95 Laboratory Results Short CBC 11/28/20 Range/Units 06:54 WBC 4.42 L (4.8-10.8) K/uL Hgb 11.5 L (12.0-16.0) g/dL Hct 35.8 L (37-47) % Plt Count 112 L (130-400) K/uL BMP 11/28/20 06:54 Sodium 138 Potassium 3.8 Chloride 108 H Carbon Dioxide 25 BUN 12 Creatinine 0.56 L Glucose 97 Calcium 8.8
[2020-11-28] MEDS: ENOXAPARIN INJ 40 MG/0.4 ML SYR SQ SCH (20:15)
[2020-11-28] MEDS ORDERED: Nursing to Pharmacy Communication SCH (23:45)
[2020-11-29 07:22] LABS: Hematocrit (blood only) 34.4 % (37-47); Hemoglobin 10.7 g/dL (12.0-16.0); Mean Corpuscular Hemoglobin 25.4 pg (25-34); Mean Corpuscular Hgb Conc 31.1 g/dL (32-36); Mean Corpuscular Volume 81.5 fL (80-100); Mean Platelet Volume 12.3 fL (7.4-10.4); Platelet Count 138 K/uL (130-400); RDW Coefficient of Variation 15.7 % (11.5-14.5); RDW Standard Deviation 47.3 fL (36.4-46.3); Red Blood Count 4.22 M/uL (4.2-5.4); White Blood Count 7.89 K/uL (4.8-10.8)
[2020-11-29 07:51] LABS: Calcium 8.9 mg/dl (8.5-10.1); Creatinine Clr Calc Pharmacy 105.4 ml/min; Est GFR (African American) 112.7 ml/min; Est GFR (Non-African American) 97.3 ml/min; Magnesium 1.9 mg/dl (1.8-2.4); Potassium 3.7 mmol/L (3.5-5.1)
[2020-11-29] MEDS: SENNA 8.6 MG TAB PO SCH (08:31)
[2020-11-29] MEDS: CHOLECALCIFEROL 1,000 UNITS 25 MCG TAB PO SCH (08:31)
[2020-11-29] MEDS: POTASSIUM CHLORIDE 10 MEQ TABCR PO SCH (08:31)
[2020-11-29] MEDS: ATORVASTATIN 20 MG TAB PO SCH (08:31)
[2020-11-29] MEDS: DOCUSATE SODIUM 100 MG CAP PO SCH (08:31)
[2020-11-29] MEDS: FUROSEMIDE 20 MG TAB PO SCH (08:31)
[2020-11-29] MEDS: DOXYCYCLINE HYCLATE 100 MG in DEXTROSE 5% 100 ML IV SCH (08:31)
--- NOTE | 2020-11-29 13:14 | Hospitalist Progress Note ---
Date of Service November 29, 2020 Assessment & Plan (1) Fever: Pt is 65 y/o F with PMH MS, HTN, HLD, lower extremity edema, obesity presented to ER with complaint of fever/chills and weakness x3 days. Max recorded temp of 100.9 F. Tick bite 1 week ago. Possible Tick Borne Illness Generalized weakness Ambulatory dysfunction H/O Tick Bite Negative COVID-19 PCR. CXR: No consolidation Negative Lyme screen Anaplasmosis PCR pending Blood cultures negative to date Received IV fluid Continue doxycycline Day #3 Thrombocytopenia resolved Clinically improved Evaluated by PT/OT Thrombocytopenia Likely secondary to above Monitor platelets No bleeding issues Resolved (2) Weakness: (3) Ambulatory dysfunction: CT head: No acute intracranial findings Likely secondary to underlying illness. Improved Continue PT/OT (4) Hypokalemia: Hypokalemia Replace electrolytes as needed Resolved (5) Multiple sclerosis: Continue Betaseron (6) Edema, lower extremity: History of chronic BLE edema Continue lasix (7) HLD (hyperlipidemia): Continue atorvastatin DVT Px Lovenox SQ Code Status Full Code Admission and Anticipated Discharge Date Admission Date: November 26, 2020 Subjective Patient is seen and examined in bedside States feeling better today No new complaints Weakness and tiredness much improved Denies chest pain, shortness of breath, dizziness, nausea, abdominal pain Review of Systems Review of Systems: All systems reviewed & are unremarkable except as noted in HPI & below Physical Exam Physical Exam: Physical Exam: Vitals signs as noted above General Appearance:Morbidly Obese, no apparent distress Head: normocephalic, Atraumatic Eyes: normal inspection, EOMI Neck: supple, Trachea midline Respiratory/Chest: Normal breath sounds, CTA, No accessory muscle use Cardiovascular: S1, S2, No murmur Abdomen/GI:Soft, Non tender, Bowel sounds present Extremities/Musculoskeletal:normal inspection, B/L LE edema Neurologic/Psych:AAOX3, grossly no focal neurological deficits Skin: normal color, warm Results & Data Results & Data ([facility]) Vital Signs (Past 12 Hours) Vital Signs Temp Pulse Pulse Resp BP BP Pulse Ox 11/29/20 12:44 36.8 C 68 20 95/58 L 121/74 95 11/29/20 11:22 36.8 C 68 20 121/74 95 11/29/20 07:57 37.5 C 83 20 125/76 99 11/29/20 07:36 71 11/29/20 05:10 69 11/29/20 04:23 37.1 C 72 18 95/58 L 96 Laboratory Results Short CBC 11/29/20 Range/Units 06:47 WBC 7.89 (4.8-10.8) K/uL Hgb 10.7 L (12.0-16.0) g/dL Hct 34.4 L (37-47) % Plt Count 138 (130-400) K/uL BMP 11/29/20 06:47 Sodium 138 Potassium 3.7 Chloride 106 Carbon Dioxide 25 BUN 11 Creatinine 0.57 L Glucose 110 H Calcium 8.9
--- NOTE | 2020-11-29 13:25 | Discharge Summary ---
Date of Service November 29, 2020 Admission HPI Per Admitting Provider Pt is 65 y/o F with PMH MS, HTN, HLD, lower extremity edema, obesity presented to ER with complaint of fever and weakness x3 days. Patient reports maximum temperature of 100.9 F yesterday. She reports chills, diffuse weakness of bilateral lower extremities, fatigue, myalgias. Had frontal headache yesterday which has resolved. Today increased difficulty ambulating and had a fall secondary to leg weakness. Uses cane at baseline. Denies hitting head or LOC. Patient reports had tick bite 1 week ago to left upper arm. Reports tick was not engorged and was able to fully remove. Denies noticing any rashes. Denies ill contacts. Denies recent travel. Reports had 2 doses Pfizer COVID-19 vaccination last dose was in beginning of August 2020. Denies cough, nausea, vomiting, diarrhea, dizziness, syncope, vision changes, neck pain, CP, SOB, orthopnea, palpitations, cough, sore throat, choking, otalgia, rhinorrhea, abdominal pain, paresthesias, increased extremity edema, rashes, urinary symptoms. Was seen at [facility] 11/25/2020 and had WBC: 4.2, negative Lyme IgG AB, IgM AB, negative Anaplasma smear, negative Covid 19 PCR. Chest x-ray with prominent markings right medial lung. Patient prescribed cefdinir and azithromycin for possible pneumonia, however patient did not get prescriptions filled yet. Admission Exam Per Admitting Provider Physical Exam Physical Exam: General: no distress, WDWN Head: normocephalic, atraumatic Eyes: PERRL, EOM's intact, conjunctiva non-injected, anicteric ENT: normal inspection external ears, nose, mucous membranes mildly dry Neck: supple, trachea midline Lungs: clear, no respiratory distress, no wheezing/rhonchi/rales CV: RRR, trace pretibial edema Abd: normal BS, soft, non-tender Ext: no cyanosis, no calf tenderness Neuro: A&O x 3, bilateral leg weakness, otherwise no focal deficits noted, normal affect Skin: warm, dry; left upper arm with approx 4 mm area of erythema at site of tick bite without red streaking or erythema migrans Principal Diagnosis Possible Tick Borne Illness Generalized weakness Ambulatory dysfunction Thrombocytopenia Discharge Data Allergies Allergy/AdvReac Type Severity Reaction Status Date / Time adhesive Allergy Unknown BANDAIDES, Verified 11/26/20 00:34 RASH, EXCORIATION Penicillins Allergy Unknown RASH, HIVES Unverified 11/26/20 00:34 rosuvastatin Allergy Unknown LIVER Unverified 11/26/20 00:34 FAILURE Consultations 11/26/20 17:07 ED Decision to Admit Stat Procedures Performed CT head: No acute intracranial abnormality. Atrophy and microvascular ischemic changes. CXR: 1. Cardiomegaly with prominence of the pulmonary vasculature. Correlate clinically for evidence of mild congestive change. 2. No airspace consolidation or large pleural effusion is identified. Hip X ray: No acute fracture within the pelvis or hips. Ordered Studies 11/26/20 14:31 CT head/brain wo con Stat Hospital Course (1) Fever: Pt is 65 y/o F with PMH MS, HTN, HLD, lower extremity edema, obesity presented to ER with complaint of fever/chills and weakness x3 days. Max recorded temp of 100.9 F. Tick bite 1 week ago. Possible Tick Borne Illness Generalized weakness Ambulatory dysfunction H/O Tick Bite Negative COVID-19 PCR. CXR: No consolidation Negative Lyme screen Anaplasmosis PCR pending Blood cultures negative to date Received IV fluid Continue doxycycline Day #3 Thrombocytopenia resolved Clinically improved Evaluated by PT/OT Thrombocytopenia Likely secondary to above Monitor platelets No bleeding issues Resolved (2) Weakness: (3) Ambulatory dysfunction: CT head: No acute intracranial findings Likely secondary to underlying illness. Improved Continue PT/OT (4) Hypokalemia: Hypokalemia Replace electrolytes as needed Resolved (5) Multiple sclerosis: Continue Betaseron (6) Edema, lower extremity: History of chronic BLE edema Continue lasix (7) HLD (hyperlipidemia): Continue atorvastatin DVT Px Lovenox SQ Code Status Full Code Total Time Total Time Spent Total Time Spent (In Minutes): 40 minutes Total Time Includes: Examination of the Patient, Discharge Planning, Medication Reconciliation, Communication With Other Providers and Other Discharge Plan Discharge Items Patient Disposition: Home - Self-Care Reason For Visit: WEAKNESS Discharge Diagnosis: Possible Tick Borne Illness Generalized weakness Ambulatory dysfunction Thrombocytopenia Activity: Per Instructions section Exercise/Sports: Gradually increase as tolerated Non-emergency contact: Primary Care Provider Call non-emergency contact if: you have any medication questions, your symptoms worsen, your pain is not controlled, your pain is concerning for you and you have a fever Follow-up/Referrals: Ariel Menjivar, DO [Primary Care Provider] - Diet: Heart Healthy Addtl Attending Provider Instructions: Follow-up with your primary care physician Dr. Ariel Menjivar in 1 week Continue doxycycline 100 mg twice a day as prescribed Your PCR test for anaplasmosis is pending at the time of discharge. Follow-up with your physician for results. Seek immediate medical attention if your symptoms reoccur or worsen Please take all medications as instructed on discharge list below. Please call if you have any questions or problems. You can reach a [facility] hospitalist on duty at [facility] 24 hours a day by calling [phone] Pending Studies at Discharge: Yes Studies:: Anaplasmosis PCR Stand-Alone Forms: My [facility], Smoking Cessation Medications and DC Order Prescriptions: New doxycycline hyclate 100 mg tablet 100 mg PO BID Qty: 15 RF: 0 Continued ascorbic acid (vitamin C) [Vitamin C] 1,000 mg Tablet 1 g PO DAILY RF: 0 docusate sodium 100 mg Tablet 100 mg PO DAILY RF: 0 biotin 1 mg Tablet 1 mg PO 3XWK RF: 0 omega-3 fatty acids-fish oil 684-1,200 mg Capsule,Delayed Release(Dr/Ec) 2 cap PO DAILY RF: 0 sennosides [Senokot] 8.6 mg Tablet 8.6 mg PO DAILY RF: 0 albuterol sulfate [ProAir HFA] 90 mcg/actuation HFA aerosol inhaler 2 puff INHALATION Q4H PRN (Reason: Shortness Of Breath Or Wheezing) RF: 0 cholecalciferol (vitamin D3) 25 mcg (1,000 unit) Tablet 25 mcg PO DAILY RF: 0 furosemide 20 mg tablet 20 mg PO DAILY RF: 0 Betaseron 0.3 mg kit 0.3 mg SUBCUT Q2D RF: 0 atorvastatin 20 mg tablet 20 mg PO DAILY RF: 0 potassium chloride 10 mEq tablet extended release 10 meq PO BID RF: 0 Discontinued azithromycin 250 mg tablet See Rx Instructions .ROUTE .COMPLEX Qty: 6 RF: 0 cefdinir 300 mg capsule 300 mg PO BID 10 Days Qty: 20 RF: 0 Discharge Orders: Discharge Order (Routine); Ordered 11/29/20 Ordered By: Aniket Kong Admission Data Admit Date/Time: 11/26/20 17:40 Attending Provider: Aniket Kong Admit Provider: Tom Wagner Primary Care Provider: Ariel Menjivar Other Providers: Tom Wagner Other Interventions: Discharge Summary Assessment (RN) Last Done: 11/29/20 12:44
== END 2020-11-29 14:54 | disposition home or self-care (01) | DRG 864 ==
LOC: ED 13:51 → SUATTDRO 17:40 → 2W 17:40